=== PATIENT | female | born 1980 | race Caucasian/White ===

== ENCOUNTER 2018-10-15 15:08 | Emergency (ER) | payer OTHER ==
[2018-10-15 15:29] VITALS: RESP 18
[2018-10-15] MEDS ORDERED: SODIUM CHLORIDE 0.9% 1,000 ML IV STA (15:38)
[2018-10-15] MEDS ORDERED: ONDANSETRON 4 MG/2 ML VIAL IVP STA (15:38)
--- NOTE | 2018-10-15 15:42 | ED ---
General Adult HPI - General Chief complaint: Recheck/Abnormal Lab/Rx Stated complaint: Diabetes, not feeling well. Time Seen by Provider: 10/15/18 15:33 Source: patient, RN notes reviewed Mode of arrival: ambulatory Limitations: no limitations - History of Present Illness Initial comments: Patient 38-year-old female presented to the emergency room today with a chief complaint of symptoms of nausea, diarrhea, feeling tired. Patient admits that the symptoms started yesterday. She has also felt short of breath at times starting yesterday as well. Patient denies any other complaints or symptoms currently. Patient denies any recent fever, chills, shortness of breath, chest pain, back pain, abdominal pain, vomiting, numbness or tingling, diarrhea, headaches or visual changes, or any other complaints. - Related Data Home Medications Medication Instructions Recorded Confirmed metFORMIN HCL 1,000 mg PO BID 07/02/16 10/15/18 DULoxetine HCL [Cymbalta] 30 mg PO DAILY 10/15/18 10/15/18 Ergocalciferol (Vitamin D2) 50,000 unit PO Q7D 10/15/18 10/15/18 [Vitamin D2] Lisinopril [Zestril] 2.5 mg PO DAILY 10/15/18 10/15/18 Allergies Allergy/AdvReac Type Severity Reaction Status Date / Time No Known Allergies Allergy Verified 10/15/18 15:47 Review of Systems ROS Statement: Those systems with pertinent positive or pertinent negative responses have been documented in the HPI. ROS Other: All systems not noted in ROS Statement are negative. Past Medical History Past Medical History: Diabetes Mellitus History of Any Multi-Drug Resistant Organisms: None Reported Additional Past Surgical History / Comment(s): d&c Past Anesthesia/Blood Transfusion Reactions: No Reported Reaction Past Psychological History: Depression Smoking Status: Former smoker General Exam - General Exam Comments Initial Comments: General: The patient is awake and alert, in no distress, and does not appear acutely ill. Eye: Pupils are equal, round and reactive to light, extra-ocular movements are intact. No nystagmus. There is normal conjunctiva bilaterally. No signs of icterus. Ears, nose, mouth and throat: There are moist mucous membranes and no oral lesions. Neck: The neck is supple, there is no tenderness or JVD. Cardiovascular: There is a regular rate and rhythm. No murmur, rub or gallop is appreciated. Respiratory: Lungs are clear to auscultation, respirations are non-labored, breath sounds are equal. No wheezes, stridor, rales, or rhonchi. Gastrointestinal: Soft, non-distended, non-tender abdomen without masses or organomegaly noted. There is no rebound or guarding present. No CVA tenderness. Musculoskeletal: Normal ROM, no tenderness. Neurological: A&O x 3. CN II-XII intact, There are no obvious motor or sensory deficits. Coordination appears grossly intact. Speech is normal. Skin: Skin is warm and dry and no rashes or lesions are noted. Psychiatric: Cooperative, appropriate mood & affect, normal judgment. Limitations: no limitations Course Vital Signs 10/15/18 10/15/18 15:26 15:56 Temperature 98.0 F 98.4 F Pulse Rate 106 H 87 Respiratory 18 18 Rate Blood Pressure 143/101 134/84 O2 Sat by Pulse 90 L 94 L Oximetry EKG Findings - EKG Comments: EKG Findings:: EKG performed at 1551: Shows normal sinus rhythm at 80 bpm. ME interval 146. QRS 78. QT/QTC 358/412. No acute ST changes. Medical Decision Making - Medical Decision Making Case discussed in detail with attending physician Dr. Valencia. Patient reexamined shows no signs of distress. She does admit that she's feeling better here in the emergency room. Patient had blood work obtained which showed negative d- dimer. Negative cardiac enzymes. Patient's blood glucose mildly elevated. He is on metformin. Acetone negative. Patient given insulin here in the emergency room. Chest x-ray unremarkable. EKG shows normal sinus rhythm. Patient feeling better and would like to be discharged home. Will be discharged to follow-up family doctor tomorrow. Advised to continue to monitor blood sugar at home return if any symptoms increase or worsen. - Lab Data Result diagrams: 10/15/18 15:42 10/15/18 15:50 Lab Results 10/15/18 10/15/18 10/15/18 Range/Units 15:35 15:35 15:41 WBC (3.8-10.6) k/uL RBC (3.80-5.40) m/uL Hgb (11.4-16.0) gm/dL Hct (34.0-46.0) % MCV (80.0-100.0) fL MCH (25.0-35.0) pg MCHC (31.0-37.0) g/dL RDW (11.5-15.5) % Plt Count (150-450) k/uL Neutrophils % % Lymphocytes % % Monocytes % % Eosinophils % % Basophils % % Neutrophils # (1.3-7.7) k/uL Lymphocytes # (1.0-4.8) k/uL Monocytes # (0-1.0) k/uL Eosinophils # (0-0.7) k/uL Basophils # (0-0.2) k/uL PT (9.0-12.0) sec INR (<1.2) APTT (22.0-30.0) sec D-Dimer (<0.60) mg/L FEU Sodium (137-145) mmol/L Potassium (3.5-5.1) mmol/L Chloride (98-107) mmol/L Carbon Dioxide (22-30) mmol/L Anion Gap mmol/L BUN (7-17) mg/dL Creatinine (0.52-1.04) mg/dL Est GFR (CKD-EPI)AfAm (>60 ml/min/1.73 sqM) Est GFR (CKD-EPI)NonAf (>60 ml/min/1.73 sqM) Glucose (74-99) mg/dL POC Glucose (mg/dL) 273 H (75-99) mg/dL POC Glu [employer] Supply Technician ID [place] Melara Calcium (8.4-10.2) mg/dL Total Bilirubin (0.2-1.3) mg/dL AST (14-36) U/L ALT (9-52) U/L Alkaline Phosphatase (38-126) U/L Total Creatine Kinase (30-135) U/L CK-MB (CK-2) (0.0-2.4) ng/mL CK-MB (CK-2) Rel Index Troponin I (0.000-0.034) ng/mL Total Protein (6.3-8.2) g/dL Albumin (3.5-5.0) g/dL Lipase (23-300) U/L Urine Color Yellow Urine Appearance Cloudy H (Clear) Urine pH 5.0 (5.0-8.0) Ur Specific [place] 1.027 (1.001-1.035) Urine Protein Trace H (Negative) Urine Glucose (UA) 4+ H (Negative) Urine Ketones Trace H (Negative) Urine Blood Trace H (Negative) Urine Nitrite Negative (Negative) Urine Bilirubin Negative (Negative) Urine Urobilinogen <2.0 (<2.0) mg/dL Ur Leukocyte Esterase Large H (Negative) Urine RBC 37 H (0-5) /hpf Ur Squamous Epith Cells 5 H (0-4) /hpf Urine Bacteria Rare H (None) /hpf Urine Mucus Rare H (None) /hpf Urine HCG, Qual Not Detected (Not Detectd) Acetone, Qual (Negative) 10/15/18 10/15/18 10/15/18 Range/Units 15:42 15:50 15:50 WBC 10.1 (3.8-10.6) k/uL RBC 5.31 (3.80-5.40) m/uL Hgb 14.5 (11.4-16.0) gm/dL Hct 43.5 (34.0-46.0) % MCV 81.9 (80.0-100.0) fL MCH 27.4 (25.0-35.0) pg MCHC 33.4 (31.0-37.0) g/dL RDW 14.2 (11.5-15.5) % Plt Count 347 (150-450) k/uL Neutrophils % 68 % Lymphocytes % 23 % Monocytes % 5 % Eosinophils % 2 % Basophils % 0 % Neutrophils # 6.9 (1.3-7.7) k/uL Lymphocytes # 2.3 (1.0-4.8) k/uL Monocytes # 0.5 (0-1.0) k/uL Eosinophils # 0.2 (0-0.7) k/uL Basophils # 0.0 (0-0.2) k/uL PT (9.0-12.0) sec INR (<1.2) APTT (22.0-30.0) sec D-Dimer (<0.60) mg/L FEU Sodium 137 (137-145) mmol/L Potassium 4.3 (3.5-5.1) mmol/L Chloride 101 (98-107) mmol/L Carbon Dioxide 26 (22-30) mmol/L Anion Gap 10 mmol/L BUN 10 (7-17) mg/dL Creatinine 0.54 (0.52-1.04) mg/dL Est GFR (CKD-EPI)AfAm >90 (>60 ml/min/1.73 sqM) Est GFR (CKD-EPI)NonAf >90 (>60 ml/min/1.73 sqM) Glucose 306 H (74-99) mg/dL POC Glucose (mg/dL) (75-99) mg/dL POC Glu Central Supply Technician ID Calcium 10.2 (8.4-10.2) mg/dL Total Bilirubin 0.7 (0.2-1.3) mg/dL AST 63 H (14-36) U/L ALT 48 (9-52) U/L Alkaline Phosphatase 115 (38-126) U/L Total Creatine Kinase 34 (30-135) U/L CK-MB (CK-2) <0.2 (0.0-2.4) ng/mL CK-MB (CK-2) Rel Index Troponin I <0.012 (0.000-0.034) ng/mL Total Protein 8.0 (6.3-8.2) g/dL Albumin 4.0 (3.5-5.0) g/dL Lipase 207 (23-300) U/L Urine Color Urine Appearance (Clear) Urine pH (5.0-8.0) Ur Specific [place] (1.001-1.035) Urine Protein (Negative) Urine Glucose (UA) (Negative) Urine Ketones (Negative) Urine Blood (Negative) Urine Nitrite (Negative) Urine Bilirubin (Negative) Urine Urobilinogen (<2.0) mg/dL Ur Leukocyte Esterase (Negative) Urine RBC (0-5) /hpf Ur Squamous Epith Cells (0-4) /hpf Urine Bacteria (None) /hpf Urine Mucus (None) /hpf Urine HCG, Qual (Not Detectd) Acetone, Qual Negative (Negative) 10/15/18 10/15/18 Range/Units 15:50 17:03 WBC (3.8-10.6) k/uL RBC (3.80-5.40) m/uL Hgb (11.4-16.0) gm/dL Hct (34.0-46.0) % MCV (80.0-100.0) fL MCH (25.0-35.0) pg MCHC (31.0-37.0) g/dL RDW (11.5-15.5) % Plt Count (150-450) k/uL Neutrophils % % Lymphocytes % % Monocytes % % Eosinophils % % Basophils % % Neutrophils # (1.3-7.7) k/uL Lymphocytes # (1.0-4.8) k/uL Monocytes # (0-1.0) k/uL Eosinophils # (0-0.7) k/uL Basophils # (0-0.2) k/uL PT 10.4 (9.0-12.0) sec INR 1.0 (<1.2) APTT 23.3 (22.0-30.0) sec D-Dimer 0.23 (<0.60) mg/L FEU Sodium (137-145) mmol/L Potassium (3.5-5.1) mmol/L Chloride (98-107) mmol/L Carbon Dioxide (22-30) mmol/L Anion Gap mmol/L BUN (7-17) mg/dL Creatinine (0.52-1.04) mg/dL Est GFR (CKD-EPI)AfAm (>60 ml/min/1.73 sqM) Est GFR (CKD-EPI)NonAf (>60 ml/min/1.73 sqM) Glucose (74-99) mg/dL POC Glucose (mg/dL) 238 H (75-99) mg/dL POC Glu Central Supply Technician ID [place] Sally Calcium (8.4-10.2) mg/dL Total Bilirubin (0.2-1.3) mg/dL AST (14-36) U/L ALT (9-52) U/L Alkaline Phosphatase (38-126) U/L Total Creatine Kinase (30-135) U/L CK-MB (CK-2) (0.0-2.4) ng/mL CK-MB (CK-2) Rel Index Troponin I (0.000-0.034) ng/mL Total Protein (6.3-8.2) g/dL Albumin (3.5-5.0) g/dL Lipase (23-300) U/L Urine Color Urine Appearance (Clear) Urine pH (5.0-8.0) Ur Specific [place] (1.001-1.035) Urine Protein (Negative) Urine Glucose (UA) (Negative) Urine Ketones (Negative) Urine Blood (Negative) Urine Nitrite (Negative) Urine Bilirubin (Negative) Urine Urobilinogen (<2.0) mg/dL Ur Leukocyte Esterase (Negative) Urine RBC (0-5) /hpf Ur Squamous Epith Cells (0-4) /hpf Urine Bacteria (None) /hpf Urine Mucus (None) /hpf Urine HCG, Qual (Not Detectd) Acetone, Qual (Negative) Disposition Clinical Impression: Hyperglycemia Disposition: HOME SELF-CARE Condition: Good Instructions: Diabetic Hyperglycemia (ED) Additional Instructions: Please follow family doctor tomorrow as discussed. Please continue to monitor blood glucose at home. Please return here to emergency room symptoms increase or worsen or for any other concerns. Is patient prescribed a controlled substance at d/c from ED?: No Referrals: Caitlin Rdz MD [Primary Care Provider] - 1-2 days Time of Disposition: 17:48
[2018-10-15 15:52] LABS: Basophils % (A) 0 %; Eosinophils # (A) 0.2 k/uL (0-0.7); Eosinophils % (A) 2 %; HCT 43.5 % (34.0-46.0); HGB 14.5 gm/dL (11.4-16.0); Lymphocytes # (A) 2.3 k/uL (1.0-4.8); Lymphocytes % (A) 23 %; MCH 27.4 pg (25.0-35.0); MCHC 33.4 g/dL (31.0-37.0); MCV 81.9 fL (80.0-100.0); Mean Platelet Volume 7.5; Monocytes # (A) 0.5 k/uL (0-1.0); Monocytes % (A) 5 %; Neutrophils # (A) 6.9 k/uL (1.3-7.7); Neutrophils % (A) 68 %; Platelet Count 347 k/uL (150-450); RBC 5.31 m/uL (3.80-5.40); RDW 14.2 % (11.5-15.5); WBC 10.1 k/uL (3.8-10.6)
[2018-10-15 16:04] LABS: ALT 48 U/L (9-52); AST 63 U/L (14-36); Alkaline Phosphatase 115 U/L (38-126); Anion Gap 10 mmol/L; Blood Urea Nitrogen 10 mg/dL (7-17); Calcium 10.2 mg/dL (8.4-10.2); Carbon Dioxide 26 mmol/L (22-30); Chloride 101 mmol/L (98-107); Glucose 306 mg/dL (74-99); Lipase 207 U/L (23-300); Potassium 4.3 mmol/L (3.5-5.1); Sodium 137 mmol/L (137-145); Total Bilirubin 0.7 mg/dL (0.2-1.3)
[2018-10-15 16:04] LABS: Appearance,Urine Cloudy (Clear); Bacteria,Urine Rare /hpf; Bilirubin,Urine Negative (Negative); Blood,Urine Trace (Negative); Color,Urine Yellow; Glucose,Urine (UA) 4+ (Negative); Ketones,Urine Trace (Negative); Leukocyte Esterase,Urine Large (Negative); Mucus,Urine Rare /hpf; Nitrite,Urine Negative (Negative); Protein,Urine Trace (Negative); RBC,Urine 37 /hpf (0-5); Specific Gravity,Urine 1.027 (1.001-1.035); Squamous Epithelial Cell,Urine 5 /hpf (0-4); Urobilinogen,Urine <2.0 mg/dL (<2.0)
[2018-10-15 16:09] LABS: Glucose,Whole Blood 273 mg/dL (75-99)
[2018-10-15 16:13] LABS: D-Dimer 0.23 mg/L FEU (<0.60); Partial Thromboplastin Time 23.3 sec (22.0-30.0); Prothrombin Time 10.4 sec (9.0-12.0)
[2018-10-15 16:14] LABS: Creatine Kinase 34 U/L (30-135)
[2018-10-15 16:27] LABS: Creatine Kinase MB <0.2 ng/mL (0.0-2.4); Troponin I <0.012 ng/mL (0.000-0.034)
--- NOTE | 2018-10-15 16:27 | XR ---
EXAMINATION TYPE: XR chest 2V DATE OF EXAM: 10/15/2018 COMPARISON: NONE HISTORY: Hyperglycemia and cough. TECHNIQUE: Frontal and lateral views of the chest are obtained. FINDINGS: An azygos lobe/fissure is incidentally seen. There is no focal air space opacity, pleural e ffusion, or pneumothorax seen. The cardiac silhouette size is within normal limits. The osseous st ructures are intact. IMPRESSION: No suspicious acute infiltrate.
[2018-10-15 17:17] LABS: Glucose,Whole Blood 238 mg/dL (75-99)
[2018-10-15] MEDS ORDERED: INSULIN ASPART 100 UNIT/ML 1 ML 10 ML VIAL SQ ONE (17:29)
[2018-10-15 18:17] VITALS: BP 136/88; PULSE 72; TEMP 97.6
[2018-10-16 05:05] LABS: Hemoglobin A1C 10.3 % (4.0-6.0)
== END 2018-10-15 18:40 | disposition home or self-care (01) ==
LOC: EC 15:08
DX: E11.65 Type 2 diabetes mellitus with hyperglycemia (principal); F32.9 Major depressive disorder, single episode, unspecified; Z79.84 Long term (current) use of oral hypoglycemic drugs; Z79.899 Other long term (current) drug therapy; Z87.891 Personal history of nicotine dependence
CPT/HCPCS: 36415; 93005; 85379; 80053; 82550; 82553; 82009; 83690; 84484; 85025; 85610; 85730; 81001; 81025; 87086; 83036; 71046; 99284; 96374; 96361; J2405

== ENCOUNTER 2018-10-16 14:30 | Emergency (ER) | payer OTHER ==
[2018-10-16 14:35] VITALS: RESP 18; TEMP 98.3
[2018-10-16] MEDS ORDERED: SODIUM CHLORIDE 0.9% 2,000 ML IV STA (14:39)
[2018-10-16] MEDS ORDERED: ONDANSETRON 4 MG/2 ML VIAL IVP STA (14:39)
--- NOTE | 2018-10-16 15:12 | ED ---
Nausea/Vomiting/Diarrhea HPI - General Chief complaint: Nausea/Vomiting/Diarrhea Stated complaint: vomiting Time Seen by Provider: 10/16/18 14:39 Source: patient, RN notes reviewed Mode of arrival: ambulatory Limitations: no limitations - History of Present Illness Initial comments: 38-year-old female presents emergency Department for recheck of nausea vomiting diarrhea. Patient states she has not felt well over the last 3 days. Patient states she cannot keep down her medications at her blood sugar has been elevated. Patient was seen in emergency room yesterday and had complete workup including labs, urinalysis. She states she felt slightly better and was discharged. Patient states now she continues to vomit. She does have some dysuria and left flank pain. Patient states she is on metformin for her diabetes. Patient denies shaking her blood sugar prior arrival. Patient denies chest pain or current shortness of breath. - Related Data Home Medications Medication Instructions Recorded Confirmed metFORMIN HCL 1,000 mg PO BID 07/02/16 10/16/18 DULoxetine HCL [Cymbalta] 30 mg PO DAILY 10/15/18 10/16/18 Lisinopril [Zestril] 2.5 mg PO DAILY 10/15/18 10/16/18 Previous Rx's Medication Instructions Recorded Ondansetron Odt [Zofran Odt] 4 mg PO Q6HR PRN #14 tab 10/16/18 Sulfamethox-Tmp 800-160Mg [Bactrim 1 each PO Q12HR #14 tab 10/16/18 Ds] Allergies Allergy/AdvReac Type Severity Reaction Status Date / Time No Known Allergies Allergy Verified 10/16/18 14:39 Review of Systems ROS Statement: Those systems with pertinent positive or pertinent negative responses have been documented in the HPI. ROS Other: All systems not noted in ROS Statement are negative. Past Medical History Past Medical History: Diabetes Mellitus History of Any Multi-Drug Resistant Organisms: None Reported Additional Past Surgical History / Comment(s): d&c Past Anesthesia/Blood Transfusion Reactions: No Reported Reaction Past Psychological History: Depression Smoking Status: Former smoker Past Alcohol Use History: None Reported Past Drug Use History: None Reported General Exam Limitations: no limitations General appearance: alert, in no apparent distress Head exam: Present: atraumatic, normocephalic, normal inspection Eye exam: Present: normal appearance, PERRL, EOMI. Absent: scleral icterus, conjunctival injection, periorbital swelling Respiratory exam: Present: normal lung sounds bilaterally. Absent: respiratory distress, wheezes, rales, rhonchi, stridor Cardiovascular Exam: Present: regular rate, normal rhythm, normal heart sounds. Absent: systolic murmur, diastolic murmur, rubs, gallop, clicks GI/Abdominal exam: Present: soft, normal bowel sounds. Absent: distended, tenderness, guarding, rebound, rigid Back exam: Present: CVA tenderness (R). Absent: CVA tenderness (L) Skin exam: Present: warm, dry, intact, normal color. Absent: rash Course Vital Signs 10/16/18 10/16/18 14:32 16:08 Temperature 98.3 F Pulse Rate 78 72 Respiratory 18 18 Rate Blood Pressure 128/90 120/72 O2 Sat by Pulse 98 96 Oximetry Medical Decision Making - Medical Decision Making 38-year-old female presents emergency Department with chief complaint of nausea vomiting diarrhea. Patient was hydrated 2 L of fluid. Patient does have evidence of urinary tract infection Rocephin was given emergency department. Patient we discharged on Bactrim, Zofran. Patient did have mild hyperglycemia at 2:30 though she is hydrated well 2 L of fluid and is not in DKA. - Lab Data Result diagrams: 10/16/18 14:57 10/16/18 14:57 Lab Results 10/16/18 10/16/18 10/16/18 Range/Units 14:57 14:57 14:57 WBC 8.9 (3.8-10.6) k/uL RBC 5.35 (3.80-5.40) m/uL Hgb 14.1 (11.4-16.0) gm/dL Hct 43.6 (34.0-46.0) % MCV 81.5 (80.0-100.0) fL MCH 26.3 (25.0-35.0) pg MCHC 32.2 (31.0-37.0) g/dL RDW 14.1 (11.5-15.5) % Plt Count 370 (150-450) k/uL Neutrophils % 64 % Lymphocytes % 26 % Monocytes % 7 % Eosinophils % 2 % Basophils % 0 % Neutrophils # 5.7 (1.3-7.7) k/uL Lymphocytes # 2.3 (1.0-4.8) k/uL Monocytes # 0.6 (0-1.0) k/uL Eosinophils # 0.2 (0-0.7) k/uL Basophils # 0.0 (0-0.2) k/uL Sodium 138 (137-145) mmol/L Potassium 4.0 (3.5-5.1) mmol/L Chloride 102 (98-107) mmol/L Carbon Dioxide 26 (22-30) mmol/L Anion Gap 10 mmol/L BUN 9 (7-17) mg/dL Creatinine 0.53 (0.52-1.04) mg/dL Est GFR (CKD-EPI)AfAm >90 (>60 ml/min/1.73 sqM) Est GFR (CKD-EPI)NonAf >90 (>60 ml/min/1.73 sqM) Glucose 258 H (74-99) mg/dL POC Glucose (mg/dL) (75-99) mg/dL POC Glu [employer] [place] ID Plasma Lactic Acid Rd (0.7-2.0) mmol/L Calcium 9.4 (8.4-10.2) mg/dL Total Bilirubin 0.7 (0.2-1.3) mg/dL AST 41 H (14-36) U/L ALT 45 (9-52) U/L Alkaline Phosphatase 106 (38-126) U/L Total Protein 7.9 (6.3-8.2) g/dL Albumin 4.1 (3.5-5.0) g/dL Amylase 68 (30-110) U/L Lipase 437 H (23-300) U/L Urine Color Yellow Urine Appearance Cloudy H (Clear) Urine pH 6.0 (5.0-8.0) Ur Specific [place] 1.020 (1.001-1.035) Urine Protein 1+ H (Negative) Urine Glucose (UA) 4+ H (Negative) Urine Ketones Negative (Negative) Urine Blood Negative (Negative) Urine Nitrite Negative (Negative) Urine Bilirubin Negative (Negative) Urine Urobilinogen <2.0 (<2.0) mg/dL Ur Leukocyte Esterase Large H (Negative) Urine RBC 9 H (0-5) /hpf Urine WBC >182 H (0-5) /hpf Ur Squamous Epith Cells 12 H (0-4) /hpf Urine Mucus Occasional H (None) /hpf Acetone, Qual Negative (Negative) 10/16/18 10/16/18 Range/Units 14:57 15:14 WBC (3.8-10.6) k/uL RBC (3.80-5.40) m/uL Hgb (11.4-16.0) gm/dL Hct (34.0-46.0) % MCV (80.0-100.0) fL MCH (25.0-35.0) pg MCHC (31.0-37.0) g/dL RDW (11.5-15.5) % Plt Count (150-450) k/uL Neutrophils % % Lymphocytes % % Monocytes % % Eosinophils % % Basophils % % Neutrophils # (1.3-7.7) k/uL Lymphocytes # (1.0-4.8) k/uL Monocytes # (0-1.0) k/uL Eosinophils # (0-0.7) k/uL Basophils # (0-0.2) k/uL Sodium (137-145) mmol/L Potassium (3.5-5.1) mmol/L Chloride (98-107) mmol/L Carbon Dioxide (22-30) mmol/L Anion Gap mmol/L BUN (7-17) mg/dL Creatinine (0.52-1.04) mg/dL Est GFR (CKD-EPI)AfAm (>60 ml/min/1.73 sqM) Est GFR (CKD-EPI)NonAf (>60 ml/min/1.73 sqM) Glucose (74-99) mg/dL POC Glucose (mg/dL) 230 H (75-99) mg/dL POC Glu [employer] ID DangitSally campbell Plasma Lactic Acid Rd 1.5 (0.7-2.0) mmol/L Calcium (8.4-10.2) mg/dL Total Bilirubin (0.2-1.3) mg/dL AST (14-36) U/L ALT (9-52) U/L Alkaline Phosphatase (38-126) U/L Total Protein (6.3-8.2) g/dL Albumin (3.5-5.0) g/dL Amylase (30-110) U/L Lipase (23-300) U/L Urine Color Urine Appearance (Clear) Urine pH (5.0-8.0) Ur Specific [place] (1.001-1.035) Urine Protein (Negative) Urine Glucose (UA) (Negative) Urine Ketones (Negative) Urine Blood (Negative) Urine Nitrite (Negative) Urine Bilirubin (Negative) Urine Urobilinogen (<2.0) mg/dL Ur Leukocyte Esterase (Negative) Urine RBC (0-5) /hpf Urine WBC (0-5) /hpf Ur Squamous Epith Cells (0-4) /hpf Urine Mucus (None) /hpf Acetone, Qual (Negative) Disposition Clinical Impression: Nausea vomiting and diarrhea, Hyperglycemia, Urinary tract infection Disposition: HOME SELF-CARE Condition: Stable Instructions: Acute Nausea and Vomiting (ED) Additional Instructions: Please return to the Emergency Department if symptoms worsen or any other concerns. Prescriptions: Ondansetron Odt [Zofran Odt] 4 mg PO Q6HR PRN #14 tab PRN Reason: Nausea Sulfamethox-Tmp 800-160Mg [Bactrim Ds] 1 each PO Q12HR #14 tab Is patient prescribed a controlled substance at d/c from ED?: No Referrals: Caitlin Rdz MD [Primary Care Provider] - 1-2 days Time of Disposition: 16:21
[2018-10-16 15:19] LABS: Glucose,Whole Blood 230 mg/dL (75-99)
[2018-10-16 15:26] LABS: Basophils % (A) 0 %; Eosinophils # (A) 0.2 k/uL (0-0.7); Eosinophils % (A) 2 %; HCT 43.6 % (34.0-46.0); HGB 14.1 gm/dL (11.4-16.0); Lymphocytes # (A) 2.3 k/uL (1.0-4.8); Lymphocytes % (A) 26 %; MCH 26.3 pg (25.0-35.0); MCHC 32.2 g/dL (31.0-37.0); MCV 81.5 fL (80.0-100.0); Mean Platelet Volume 6.8; Monocytes # (A) 0.6 k/uL (0-1.0); Monocytes % (A) 7 %; Neutrophils # (A) 5.7 k/uL (1.3-7.7); Neutrophils % (A) 64 %; Platelet Count 370 k/uL (150-450); RBC 5.35 m/uL (3.80-5.40); RDW 14.1 % (11.5-15.5); WBC 8.9 k/uL (3.8-10.6)
[2018-10-16 15:32] LABS: ALT 45 U/L (9-52); AST 41 U/L (14-36); Albumin 4.1 g/dL (3.5-5.0); Alkaline Phosphatase 106 U/L (38-126); Amylase 68 U/L (30-110); Anion Gap 10 mmol/L; Blood Urea Nitrogen 9 mg/dL (7-17); Calcium 9.4 mg/dL (8.4-10.2); Carbon Dioxide 26 mmol/L (22-30); Chloride 102 mmol/L (98-107); Glucose 258 mg/dL (74-99); Lipase 437 U/L (23-300); Sodium 138 mmol/L (137-145); Total Bilirubin 0.7 mg/dL (0.2-1.3); Total Protein 7.9 g/dL (6.3-8.2)
[2018-10-16 15:46] LABS: Appearance,Urine Cloudy (Clear); Bilirubin,Urine Negative (Negative); Blood,Urine Negative (Negative); Color,Urine Yellow; Glucose,Urine (UA) 4+ (Negative); Ketones,Urine Negative (Negative); Leukocyte Esterase,Urine Large (Negative); Mucus,Urine Occasional /hpf; Nitrite,Urine Negative (Negative); Protein,Urine 1+ (Negative); RBC,Urine 9 /hpf (0-5); Squamous Epithelial Cell,Urine 12 /hpf (0-4); Urobilinogen,Urine <2.0 mg/dL (<2.0); WBC,Urine >182 /hpf (0-5)
[2018-10-16 16:11] VITALS: BP 120/72; PULSE 72
[2018-10-16] MEDS ORDERED: METOCLOPRAMIDE 5 MG/ML 2 ML VIAL IVP STA (16:19)
[2018-10-16] MEDS ORDERED: diphenhydrAMINE 50 MG/ML 1 ML VIAL IVP STA (16:19)
[2018-10-17 03:52] LABS: Hemoglobin A1C 10.4 % (4.0-6.0)
== END 2018-10-16 16:44 | disposition home or self-care (01) ==
LOC: EC 14:30
DX: N39.0 Urinary tract infection, site not specified (principal); E11.65 Type 2 diabetes mellitus with hyperglycemia; R11.2 Nausea with vomiting, unspecified; R19.7 Diarrhea, unspecified; F32.9 Major depressive disorder, single episode, unspecified; Z87.891 Personal history of nicotine dependence; Z79.84 Long term (current) use of oral hypoglycemic drugs; Z79.899 Other long term (current) drug therapy
CPT/HCPCS: 36415; 80053; 82150; 82009; 83605; 83690; 85025; 81001; 87040; 87086; 83036; 99284; 96365; 96375 ×3; 96361; J1200; J2765; J2405; J0696

== ENCOUNTER 2018-10-25 15:30 | Emergency (ER) | payer OTHER ==
--- NOTE | 2018-10-25 23:18 | XR ---
EXAMINATION TYPE: KUB DATE OF EXAM: 10/25/2018 COMPARISON: 02/07/2016 HISTORY: 38-year-old female right-sided abdominal pain TECHNIQUE: 2 views upright FINDINGS: No evidence for free intraperitoneal air. No dilated small bowel or air-fluid levels. Mild overall stool burden. No definite suspicious calcifications are identified. IMPRESSION: No evidence for free air or bowel obstruction. No definite suspicious calcifications are appreciated radiographically.
[2018-10-26 04:01] LABS: Appearance,Urine Cloudy (Clear); Bacteria,Urine Rare /hpf; Bilirubin,Urine Negative (Negative); Blood,Urine Negative (Negative); Budding Yeast,Urine Few /hpf; Color,Urine Yellow; Glucose,Urine (UA) 4+ (Negative); Ketones,Urine 1+ (Negative); Leukocyte Esterase,Urine Moderate (Negative); Mucus,Urine Rare /hpf; Nitrite,Urine Negative (Negative); PH, Urine 5.5 (5.0-8.0); Protein,Urine 1+ (Negative); RBC,Urine 10 /hpf (0-5); Specific Gravity,Urine 1.031 (1.001-1.035); Squamous Epithelial Cell,Urine 11 /hpf (0-4); Urobilinogen,Urine <2.0 mg/dL (<2.0); WBC,Urine 25 /hpf (0-5)
[2018-10-26 05:20] LABS: Basophils % (A) 0 %; Eosinophils # (A) 0.2 k/uL (0-0.7); Eosinophils % (A) 2 %; HCT 43.9 % (34.0-46.0); HGB 14.2 gm/dL (11.4-16.0); Lymphocytes # (A) 2.5 k/uL (1.0-4.8); Lymphocytes % (A) 22 %; MCH 26.5 pg (25.0-35.0); MCHC 32.4 g/dL (31.0-37.0); MCV 81.7 fL (80.0-100.0); Mean Platelet Volume 7.2; Monocytes # (A) 0.6 k/uL (0-1.0); Monocytes % (A) 6 %; Neutrophils # (A) 7.8 k/uL (1.3-7.7); Neutrophils % (A) 69 %; Platelet Count 363 k/uL (150-450); RBC 5.37 m/uL (3.80-5.40); WBC 11.2 k/uL (3.8-10.6)
[2018-10-26 12:53] LABS: ALT 43 U/L (9-52); AST 42 U/L (14-36); Albumin 4.2 g/dL (3.5-5.0); Alkaline Phosphatase 125 U/L (38-126); Amylase 54 U/L (30-110); Anion Gap 10 mmol/L; Blood Urea Nitrogen 8 mg/dL (7-17); Calcium 9.5 mg/dL (8.4-10.2); Carbon Dioxide 24 mmol/L (22-30); Chloride 104 mmol/L (98-107); Glucose 257 mg/dL (74-99); Lipase 187 U/L (23-300); Sodium 138 mmol/L (137-145); Total Protein 8.1 g/dL (6.3-8.2)
== END 2018-10-25 18:45 | disposition home or self-care (01) ==
LOC: EC 15:30
DX: N39.0 Urinary tract infection, site not specified (principal); R19.7 Diarrhea, unspecified; N90.89 Other specified noninflammatory disorders of vulva and perineum; Z87.442 Personal history of urinary calculi; Z86.19 Personal history of other infectious and parasitic diseases
CPT/HCPCS: 36415; 74018; 80053; 81001; 82150; 83690; 85025; 87040; 87086; 96361; 96374; 96375; 99284

== ENCOUNTER 2018-12-05 19:34 | Emergency (ER) | payer OTHER ==
[2018-12-05 20:10] VITALS: TEMP 98.4
[2018-12-05] MEDS ORDERED: SODIUM CHLORIDE 0.9% 1,000 ML IV ONE (20:18)
--- NOTE | 2018-12-05 20:18 | ED ---
General Adult HPI - General Chief complaint: Recheck/Abnormal Lab/Rx Stated complaint: High Sugar Time Seen by Provider: 12/05/18 20:17 Source: patient Mode of arrival: ambulatory Limitations: no limitations - History of Present Illness Initial comments: 38-year-old female presenting today for chief complaint of elevated blood glucose. Patient has history of [id number] diabetes currently on metformin. Patient states she was at her primary care provider where she elevated blood glucose as well as ketones in her urine. Patient was non-sym ptomatically at this time she states she has been a little tired brother that no complaints. Patient states she's been compliant with her medication. Upon arrival patient appears well. Remaining review of system negative,patient denies any recent fever, chills, shortness of breath, chest pain, back pain, abdominal pain, nausea or vomiting, numbness or tingling, dysuria or hematuria, constipation or diarrhea, headaches or visual changes, or any other complaints - Related Data Home Medications Medication Instructions Recorded Confirmed metFORMIN HCL 1,000 mg PO BID 07/02/16 12/05/18 Lisinopril [Zestril] 2.5 mg PO DAILY 10/15/18 12/05/18 Allergies Allergy/AdvReac Type Severity Reaction Status Date / Time No Known Allergies Allergy Verified 12/05/18 20:35 Review of Systems ROS Statement: Those systems with pertinent positive or pertinent negative responses have been documented in the HPI. ROS Other: All systems not noted in ROS Statement are negative. Past Medical History Past Medical History: Diabetes Mellitus History of Any Multi-Drug Resistant Organisms: None Reported Additional Past Surgical History / Comment(s): d&c Past Anesthesia/Blood Transfusion Reactions: No Reported Reaction Past Psychological History: Depression Smoking Status: Former smoker Past Alcohol Use History: None Reported Past Drug Use History: None Reported General Exam - General Exam Comments Initial Comments: General: The patient is awake and alert, in no distress, and does not appear acutely ill. Eye: Pupils are equal, round and reactive to light, extra-ocular movements are intact. No nystagmus. There is normal conjunctiva bilaterally. No signs of icterus. Ears, nose, mouth and throat: There are moist mucous membranes and no oral lesions. Neck: The neck is supple, there is no tenderness or JVD. Cardiovascular: There is a regular rate and rhythm. No murmur, rub or gallop is appreciated. Respiratory: Lungs are clear to auscultation, respirations are non-labored, breath sounds are equal. No wheezes, stridor, rales, or rhonchi. Gastrointestinal: Soft, non-distended, non-tender abdomen without masses or organomegaly noted. There is no rebound or guarding present. Bowel sounds are unremarkable. Musculoskeletal: Normal ROM, no tenderness. Strength 5/5. Sensation intact. Pulses equal bilaterally 2+. Neurological: A&O x 3. CN II-XII intact, There are no obvious motor or sensory deficits. Coordination appears grossly intact. Speech is normal. Skin: Skin is warm and dry and no rashes or lesions are noted. Psychiatric: Cooperative, appropriate mood & affect, normal judgment. Limitations: no limitations Course Vital Signs 12/05/18 12/05/18 20:06 22:31 Temperature 98.4 F Pulse Rate 93 81 Respiratory 20 16 Rate Blood Pressure 136/92 135/80 O2 Sat by Pulse 100 98 Oximetry Medical Decision Making - Medical Decision Making patient has no complaints.Blood glucose elevated. patient given IV fluids. Patient given subq insulin. Acetone negative. Anion gap within normal limits at 11.ketones in urine. Patient discharge with instruction to f/u with PCP for improvement of diabetes management. I discussed the importance of management as well as importance of diet changes next chest. Patient provided information on diabetes diet. At this time feel patient is stable for discharge as patient has no local medical signs indicative of DKA. Patient has no complaints. Patient discharged to [facility]. Will ask discussed the case with her brother Dr. Harvey. - Lab Data Result diagrams: 12/05/18 21:14 12/05/18 21:14 Lab Results 12/05/18 12/05/18 12/05/18 Range/Units 21:14 21:14 21:34 WBC 10.5 (3.8-10.6) k/uL RBC 5.79 H (3.80-5.40) m/uL Hgb 15.7 (11.4-16.0) gm/dL Hct 47.9 H (34.0-46.0) % MCV 82.9 (80.0-100.0) fL MCH 27.1 (25.0-35.0) pg MCHC 32.7 (31.0-37.0) g/dL RDW 14.5 (11.5-15.5) % Plt Count 314 (150-450) k/uL Neutrophils % 64 % Lymphocytes % 27 % Monocytes % 5 % Eosinophils % 2 % Basophils % 0 % Neutrophils # 6.7 (1.3-7.7) k/uL Lymphocytes # 2.9 (1.0-4.8) k/uL Monocytes # 0.5 (0-1.0) k/uL Eosinophils # 0.2 (0-0.7) k/uL Basophils # 0.0 (0-0.2) k/uL Sodium 137 (137-145) mmol/L Potassium 4.8 (3.5-5.1) mmol/L Chloride 101 (98-107) mmol/L Carbon Dioxide 25 (22-30) mmol/L Anion Gap 11 mmol/L BUN 11 (7-17) mg/dL Creatinine 0.44 L (0.52-1.04) mg/dL Est GFR (CKD-EPI)AfAm >90 (>60 ml/min/1.73 sqM) Est GFR (CKD-EPI)NonAf >90 (>60 ml/min/1.73 sqM) Glucose 269 H (74-99) mg/dL POC Glucose (mg/dL) (75-99) mg/dL POC Glu Mangle Roller ID Calcium 9.9 (8.4-10.2) mg/dL Total Bilirubin 1.1 (0.2-1.3) mg/dL AST 24 (14-36) U/L ALT 28 (9-52) U/L Alkaline Phosphatase 114 (38-126) U/L Total Protein 8.4 H (6.3-8.2) g/dL Albumin 4.5 (3.5-5.0) g/dL Urine Color Yellow Urine Appearance Cloudy H (Clear) Urine pH 5.0 (5.0-8.0) Ur Specific [place] 1.036 H (1.001-1.035) Urine Protein Trace H (Negative) Urine Glucose (UA) 4+ H (Negative) Urine Ketones 1+ H (Negative) Urine Blood Negative (Negative) Urine Nitrite Negative (Negative) Urine Bilirubin Negative (Negative) Urine Urobilinogen <2.0 (<2.0) mg/dL Ur Leukocyte Esterase Moderate H (Negative) Urine RBC 28 H (0-5) /hpf Urine WBC 6 H (0-5) /hpf Ur Squamous Epith Cells 4 (0-4) /hpf Urine Bacteria Rare H (None) /hpf Urine Mucus Rare H (None) /hpf Acetone, Qual Negative (Negative) 12/05/18 Range/Units 22:26 WBC (3.8-10.6) k/uL RBC (3.80-5.40) m/uL Hgb (11.4-16.0) gm/dL Hct (34.0-46.0) % MCV (80.0-100.0) fL MCH (25.0-35.0) pg MCHC (31.0-37.0) g/dL RDW (11.5-15.5) % Plt Count (150-450) k/uL Neutrophils % % Lymphocytes % % Monocytes % % Eosinophils % % Basophils % % Neutrophils # (1.3-7.7) k/uL Lymphocytes # (1.0-4.8) k/uL Monocytes # (0-1.0) k/uL Eosinophils # (0-0.7) k/uL Basophils # (0-0.2) k/uL Sodium (137-145) mmol/L Potassium (3.5-5.1) mmol/L Chloride (98-107) mmol/L Carbon Dioxide (22-30) mmol/L Anion Gap mmol/L BUN (7-17) mg/dL Creatinine (0.52-1.04) mg/dL Est GFR (CKD-EPI)AfAm (>60 ml/min/1.73 sqM) Est GFR (CKD-EPI)NonAf (>60 ml/min/1.73 sqM) Glucose (74-99) mg/dL POC Glucose (mg/dL) 221 H (75-99) mg/dL POC Glu Mangle Roller ID Brynn Carr Calcium (8.4-10.2) mg/dL Total Bilirubin (0.2-1.3) mg/dL AST (14-36) U/L ALT (9-52) U/L Alkaline Phosphatase (38-126) U/L Total Protein (6.3-8.2) g/dL Albumin (3.5-5.0) g/dL Urine Color Urine Appearance (Clear) Urine pH (5.0-8.0) Ur Specific [place] (1.001-1.035) Urine Protein (Negative) Urine Glucose (UA) (Negative) Urine Ketones (Negative) Urine Blood (Negative) Urine Nitrite (Negative) Urine Bilirubin (Negative) Urine Urobilinogen (<2.0) mg/dL Ur Leukocyte Esterase (Negative) Urine RBC (0-5) /hpf Urine WBC (0-5) /hpf Ur Squamous Epith Cells (0-4) /hpf Urine Bacteria (None) /hpf Urine Mucus (None) /hpf Acetone, Qual (Negative) Disposition Clinical Impression: Elevated random blood glucose level, Urine ketones Disposition: HOME SELF-CARE Condition: Good Instructions (If sedation given, give patient instructions): Diabetes and Nutrition (ED), Diabetes and Exercise (ED) Additional Instructions: Please use medication as discussed. Please follow-up with family doctor in the next 2 day, for review of diabetes medications, please change diet as discussed and increase exercise. Please return to emergency room if the symptoms increase or worsen or for any other concerns. Is patient prescribed a controlled substance at d/c from ED?: No Referrals: Caitlin Rdz MD [Primary Care Provider] - 1-2 days Time of Disposition: 21:48
[2018-12-05 21:29] LABS: Basophils % (A) 0 %; Eosinophils # (A) 0.2 k/uL (0-0.7); Eosinophils % (A) 2 %; HCT 47.9 % (34.0-46.0); HGB 15.7 gm/dL (11.4-16.0); Lymphocytes # (A) 2.9 k/uL (1.0-4.8); Lymphocytes % (A) 27 %; MCH 27.1 pg (25.0-35.0); MCHC 32.7 g/dL (31.0-37.0); MCV 82.9 fL (80.0-100.0); Mean Platelet Volume 7.7; Monocytes # (A) 0.5 k/uL (0-1.0); Monocytes % (A) 5 %; Neutrophils # (A) 6.7 k/uL (1.3-7.7); Neutrophils % (A) 64 %; Platelet Count 314 k/uL (150-450); RBC 5.79 m/uL (3.80-5.40); RDW 14.5 % (11.5-15.5); WBC 10.5 k/uL (3.8-10.6)
[2018-12-05 21:41] LABS: ALT 28 U/L (9-52); AST 24 U/L (14-36); Albumin 4.5 g/dL (3.5-5.0); Alkaline Phosphatase 114 U/L (38-126); Anion Gap 11 mmol/L; Blood Urea Nitrogen 11 mg/dL (7-17); Calcium 9.9 mg/dL (8.4-10.2); Carbon Dioxide 25 mmol/L (22-30); Chloride 101 mmol/L (98-107); Glucose 269 mg/dL (74-99); Potassium 4.8 mmol/L (3.5-5.1); Sodium 137 mmol/L (137-145); Total Bilirubin 1.1 mg/dL (0.2-1.3); Total Protein 8.4 g/dL (6.3-8.2)
[2018-12-05] MEDS ORDERED: INSULIN REGULAR 100 UNIT/ML VIAL SQ ONE (21:45)
[2018-12-05 21:55] LABS: Appearance,Urine Cloudy (Clear); Bacteria,Urine Rare /hpf; Bilirubin,Urine Negative (Negative); Blood,Urine Negative (Negative); Color,Urine Yellow; Glucose,Urine (UA) 4+ (Negative); Ketones,Urine 1+ (Negative); Leukocyte Esterase,Urine Moderate (Negative); Mucus,Urine Rare /hpf; Nitrite,Urine Negative (Negative); Protein,Urine Trace (Negative); RBC,Urine 28 /hpf (0-5); Specific Gravity,Urine 1.036 (1.001-1.035); Squamous Epithelial Cell,Urine 4 /hpf (0-4); Urobilinogen,Urine <2.0 mg/dL (<2.0); WBC,Urine 6 /hpf (0-5)
[2018-12-05 22:28] LABS: Glucose,Whole Blood 221 mg/dL (75-99)
[2018-12-05 22:33] VITALS: BP 135/80; PULSE 81; RESP 16
== END 2018-12-05 22:31 | disposition home or self-care (01) ==
LOC: EC 19:34
DX: E11.9 Type 2 diabetes mellitus without complications (principal); R82.4 Acetonuria; Z87.891 Personal history of nicotine dependence; Z79.84 Long term (current) use of oral hypoglycemic drugs; Z79.899 Other long term (current) drug therapy
CPT/HCPCS: 36415; 80053; 81001; 82009; 85025; 96360; 99284

== ENCOUNTER → 2019-06-09 | Outpatient (CLI) | payer OTHER ==
--- NOTE | 2019-06-09 13:39 | CT ---
EXAMINATION TYPE: CT brain wo con DATE OF EXAM: 06/09/2019 COMPARISON: None. HISTORY: Headaches with visual disturbance. CT DLP: 1017.9 mGycm. Automated Exposure Control for Dose Reduction was Utilized. TECHNIQUE: CT scan of the head is performed without contrast. FINDINGS: There is no acute intracranial hemorrhage, mass effect, or midline shift identified. The ventricles and sulci are within normal limits in size. Santos-white matter differentiation is maintai chicho. Suprasellar cistern is preserved. The globes are intact and the visualized sinuses are clear. IMPRESSION: Unremarkable study.
== END | disposition home or self-care (01) ==
LOC: RADCTMAIN 12:34
PROVIDERS: ATTEND Family Medicine
DX: H53.9 Unspecified visual disturbance (principal); R51 Headache
CPT/HCPCS: 70450

== ENCOUNTER 2020-10-29 14:23 | Emergency (ER) | payer OTHER ==
[2020-10-29] MEDS ORDERED: SODIUM CHLORIDE 0.9% 1,000 ML IV ONE (14:42)
[2020-10-29] MEDS ORDERED: SODIUM CHLORIDE 0.9% 1,000 ML IV SCH (14:45)
--- NOTE | 2020-10-29 14:54 | ED ---
Abdominal Pain HPI - General Chief Complaint: Abdominal Pain Stated Complaint: Abd Pain Time Seen by Provider: 10/29/20 14:28 Source: patient Mode of arrival: ambulatory Limitations: no limitations - History of Present Illness Initial Comments: 40-year-old female with history of DMII presenting today for chief complaint abdominal pain. Patient states that she has a fullness in her lower abdomen that radiates towards her low to mid back. Patient states she was recently admitted at [facility] for colitis as well as diverticulitis. Patient states that she had some shortness of breath she states that changed. She denies any chest pain. Pt admits to nausea, no vomiting. Pt denies black or bloody stools. Patient denies fevers. Denies urinary symptoms. Pt states she does have history of kidney stones. Patient appears well nontoxic on arrival. - Related Data Home Medications Medication Instructions Recorded Confirmed metFORMIN HCL 1,000 mg PO BID 07/02/16 10/29/20 lisinopriL [Zestril] 2.5 mg PO DAILY 10/15/18 10/29/20 Atorvastatin [Lipitor] 20 mg PO DAILY 10/29/20 10/29/20 Cefuroxime Axetil [Ceftin] 500 mg PO BID 10/29/20 10/29/20 Glimepiride [Amaryl] 2 mg PO DAILY 10/29/20 10/29/20 Meloxicam [Mobic] 7.5 mg PO DAILY PRN 10/29/20 10/29/20 Sennosides [Senna] 8.6 mg PO BID PRN 10/29/20 10/29/20 metroNIDAZOLE [Flagyl] 500 mg PO TID 10/29/20 10/29/20 polyethylene glycoL 3350 [Miralax] 17 gm PO DAILY 10/29/20 10/29/20 Allergies Allergy/AdvReac Type Severity Reaction Status Date / Time No Known Allergies Allergy Verified 10/29/20 16:37 Review of Systems ROS Statement: Those systems with pertinent positive or pertinent negative responses have been documented in the HPI. ROS Other: All systems not noted in ROS Statement are negative. Past Medical History Past Medical History: Diabetes Mellitus History of Any Multi-Drug Resistant Organisms: None Reported Additional Past Surgical History / Comment(s): d&c Past Anesthesia/Blood Transfusion Reactions: No Reported Reaction Past Psychological History: Depression Smoking Status: Current every day smoker Past Alcohol Use History: None Reported Past Drug Use History: None Reported General Exam - General Exam Comments Initial Comments: General: The patient is awake and alert, in no distress Eye: Pupils are equal, round and reactive to light, extra-ocular movements are intact. No nystagmus. There is normal conjunctiva bilaterally. No signs of icterus. Ears, nose, mouth and throat: There are moist mucous membranes and no oral lesions. Neck: The neck is supple, there is no tenderness or JVD. Cardiovascular: There is a regular rate and rhythm. No murmur, rub or gallop is appreciated. Respiratory: Lungs are clear to auscultation, respirations are non-labored, breath sounds are equal. No wheezes, stridor, rales, or rhonchi. Gastrointestinal: [Soft, non-distended, diffuse lower abdominal tenderness to palpation of the, abdomen abdomen without masses or organomegaly noted. There is no rebound or guarding present. Musculoskeletal: Normal ROM, no tenderness. Strength 5/5. Sensation intact. Radial and DP pulses equal bilaterally 2+. Neurological: A&O x 3. CN II-XII intact, There are no obvious motor or sensory deficits. Coordination appears grossly intact. Speech is normal. Skin: Skin is warm and dry and no rashes or lesions are noted. Psychiatric: Cooperative, appropriate mood & affect, normal judgment. Limitations: no limitations Course Vital Signs 10/29/20 10/29/20 10/29/20 14:25 15:51 17:08 Temperature 98.5 F 98.3 F Pulse Rate 85 72 80 Respiratory 16 18 18 Rate Blood Pressure 152/90 128/86 141/93 O2 Sat by Pulse 98 98 97 Oximetry Medical Decision Making - Medical Decision Making 40yo covid + female presneting with lwoer abdominal pain .recent diverticulitis admission. CT mild to MINIMAL diverticulitis. No dyspnea or chest pain. Pt UA contaminated, culture pending. pt on bactrim/flagyll. pt will be discharged with GI f/u and PCP f/u. return for worsening symptoms. pt does not appear toxic nor in distress. Given reports from [facility] i feel pt improving. VS stable. Attending Dr. Harvey is agreebable to this care plan and discharge. - Lab Data Result diagrams: 10/29/20 14:53 10/29/20 14:53 Lab Results 10/29/20 10/29/20 10/29/20 Range/Units 14:53 14:53 14:53 WBC 8.7 (3.8-10.6) k/uL RBC 5.21 (3.80-5.40) m/uL Hgb 14.4 (11.4-16.0) gm/dL Hct 43.0 (34.0-46.0) % MCV 82.6 (80.0-100.0) fL MCH 27.6 (25.0-35.0) pg MCHC 33.4 (31.0-37.0) g/dL RDW 14.0 (11.5-15.5) % Plt Count 288 (150-450) k/uL MPV 7.7 Neutrophils % 68 % Lymphocytes % 21 % Monocytes % 6 % Eosinophils % 4 % Basophils % 1 % Neutrophils # 5.9 (1.3-7.7) k/uL Lymphocytes # 1.8 (1.0-4.8) k/uL Monocytes # 0.5 (0-1.0) k/uL Eosinophils # 0.3 (0-0.7) k/uL Basophils # 0.1 (0-0.2) k/uL Sodium 140 (137-145) mmol/L Potassium 3.7 (3.5-5.1) mmol/L Chloride 106 (98-107) mmol/L Carbon Dioxide 26 (22-30) mmol/L Anion Gap 8 mmol/L BUN 7 (7-17) mg/dL Creatinine 0.60 (0.52-1.04) mg/dL Est GFR (CKD-EPI)AfAm >90 (>60 ml/min/1.73 sqM) Est GFR (CKD-EPI)NonAf >90 (>60 ml/min/1.73 sqM) Glucose 106 H (74-99) mg/dL Plasma Lactic Acid Rd (0.7-2.0) mmol/L Calcium 8.7 (8.4-10.2) mg/dL Total Bilirubin 0.6 (0.2-1.3) mg/dL AST 36 (14-36) U/L ALT 29 (4-34) U/L Alkaline Phosphatase 88 (38-126) U/L Total Protein 7.4 (6.3-8.2) g/dL Albumin 3.5 (3.5-5.0) g/dL Amylase 65 (30-110) U/L Lipase 237 (23-300) U/L Urine Color Yellow Urine Appearance Cloudy H (Clear) Urine pH 7.5 (5.0-8.0) Ur Specific [place] 1.020 (1.001-1.035) Urine Protein Negative (Negative) Urine Glucose (UA) Negative (Negative) Urine Ketones Negative (Negative) Urine Blood Negative (Negative) Urine Nitrite Negative (Negative) Urine Bilirubin Negative (Negative) Urine Urobilinogen <2.0 (<2.0) mg/dL Ur Leukocyte Esterase Moderate H (Negative) Urine RBC 4 (0-5) /hpf Urine WBC 13 H (0-5) /hpf Ur Squamous Epith Cells 7 H (0-4) /hpf Urine Mucus Occasional H (None) /hpf 10/29/20 Range/Units 14:53 WBC (3.8-10.6) k/uL RBC (3.80-5.40) m/uL Hgb (11.4-16.0) gm/dL Hct (34.0-46.0) % MCV (80.0-100.0) fL MCH (25.0-35.0) pg MCHC (31.0-37.0) g/dL RDW (11.5-15.5) % Plt Count (150-450) k/uL MPV Neutrophils % % Lymphocytes % % Monocytes % % Eosinophils % % Basophils % % Neutrophils # (1.3-7.7) k/uL Lymphocytes # (1.0-4.8) k/uL Monocytes # (0-1.0) k/uL Eosinophils # (0-0.7) k/uL Basophils # (0-0.2) k/uL Sodium (137-145) mmol/L Potassium (3.5-5.1) mmol/L Chloride (98-107) mmol/L Carbon Dioxide (22-30) mmol/L Anion Gap mmol/L BUN (7-17) mg/dL Creatinine (0.52-1.04) mg/dL Est GFR (CKD-EPI)AfAm (>60 ml/min/1.73 sqM) Est GFR (CKD-EPI)NonAf (>60 ml/min/1.73 sqM) Glucose (74-99) mg/dL Plasma Lactic Acid Rd 1.8 (0.7-2.0) mmol/L Calcium (8.4-10.2) mg/dL Total Bilirubin (0.2-1.3) mg/dL AST (14-36) U/L ALT (4-34) U/L Alkaline Phosphatase (38-126) U/L Total Protein (6.3-8.2) g/dL Albumin (3.5-5.0) g/dL Amylase (30-110) U/L Lipase (23-300) U/L Urine Color Urine Appearance (Clear) Urine pH (5.0-8.0) Ur Specific [place] (1.001-1.035) Urine Protein (Negative) Urine Glucose (UA) (Negative) Urine Ketones (Negative) Urine Blood (Negative) Urine Nitrite (Negative) Urine Bilirubin (Negative) Urine Urobilinogen (<2.0) mg/dL Ur Leukocyte Esterase (Negative) Urine RBC (0-5) /hpf Urine WBC (0-5) /hpf Ur Squamous Epith Cells (0-4) /hpf Urine Mucus (None) /hpf Disposition Clinical Impression: Diverticulitis, History of COVID-19, Abdominal pain, Urine WBC increased Disposition: HOME SELF-CARE Condition: Good Instructions (If sedation given, give patient instructions): Diverticulitis (ED), Abdominal Pain (ED) Additional Instructions: Please use medication as discussed. Please follow-up with family doctor in the next 2 days, as well as GI specialist in the next 2-3 days. Please return to emergency room if the symptoms increase or worsen or for any other concerns. Is patient prescribed a controlled substance at d/c from ED?: No Referrals: Caitlin Rdz MD [Primary Care Provider] - 1-2 days Dakota Palacios MD [STAFF PHYSICIAN] - 1-2 days Time of Disposition: 16:53
[2020-10-29 15:04] LABS: Basophils # (A) 0.1 k/uL (0-0.2); Basophils % (A) 1 %; Eosinophils # (A) 0.3 k/uL (0-0.7); Eosinophils % (A) 4 %; HGB 14.4 gm/dL (11.4-16.0); Lymphocytes # (A) 1.8 k/uL (1.0-4.8); Lymphocytes % (A) 21 %; MCH 27.6 pg (25.0-35.0); MCHC 33.4 g/dL (31.0-37.0); MCV 82.6 fL (80.0-100.0); Mean Platelet Volume 7.7; Monocytes # (A) 0.5 k/uL (0-1.0); Monocytes % (A) 6 %; Neutrophils # (A) 5.9 k/uL (1.3-7.7); Neutrophils % (A) 68 %; Platelet Count 288 k/uL (150-450); RBC 5.21 m/uL (3.80-5.40); WBC 8.7 k/uL (3.8-10.6)
[2020-10-29 15:09] LABS: Appearance,Urine Cloudy (Clear); Bilirubin,Urine Negative (Negative); Blood,Urine Negative (Negative); Color,Urine Yellow; Glucose,Urine (UA) Negative (Negative); Ketones,Urine Negative (Negative); Leukocyte Esterase,Urine Moderate (Negative); Mucus,Urine Occasional /hpf; Nitrite,Urine Negative (Negative); PH, Urine 7.5 (5.0-8.0); Protein,Urine Negative (Negative); RBC,Urine 4 /hpf (0-5); Squamous Epithelial Cell,Urine 7 /hpf (0-4); Urobilinogen,Urine <2.0 mg/dL (<2.0); WBC,Urine 13 /hpf (0-5)
[2020-10-29] MEDS ORDERED: cefTRIAXone IN SWFI 1,000 MG/10 ML SYRINGE IVP STA (15:18)
[2020-10-29 15:35] LABS: ALT 29 U/L (4-34); AST 36 U/L (14-36); African American GFR (CKD) >90 (>60 ml/min/1.73 sqM); Albumin 3.5 g/dL (3.5-5.0); Alkaline Phosphatase 88 U/L (38-126); Amylase 65 U/L (30-110); Anion Gap 8 mmol/L; Blood Urea Nitrogen 7 mg/dL (7-17); Calcium 8.7 mg/dL (8.4-10.2); Carbon Dioxide 26 mmol/L (22-30); Chloride 106 mmol/L (98-107); Glucose 106 mg/dL (74-99); Lipase 237 U/L (23-300); Non-African American GFR(CKD) >90 (>60 ml/min/1.73 sqM); Potassium 3.7 mmol/L (3.5-5.1); Sodium 140 mmol/L (137-145); Total Bilirubin 0.6 mg/dL (0.2-1.3); Total Protein 7.4 g/dL (6.3-8.2)
[2020-10-29 15:57] VITALS: RESP 18
--- NOTE | 2020-10-29 16:45 | CT ---
EXAMINATION TYPE: CT abdomen pelvis w con DATE OF EXAM: 10/29/2020 COMPARISON: None: HISTORY: Abdominal and back pain. Recent diagnosis of diverticulitis. CT DLP: 1895.1 mGycm Automated exposure control for dose reduction was used. CONTRAST: Performed with IV Contrast, patient injected with 100 mL of Isovue 300. Images obtained from the diaphragm to the floor the pelvis with IV contrast. Lung bases are clear of consolidation. There is no pleural effusion. There is no pericardial effusion . Heart size is normal. There is some fatty infiltration of the liver. The spleen is intact. There is no pancreatic mass. The stomach is intact. Gallbladder appears normal. There is no adrenal mass. Kidneys show satisfactory contrast opacification. There is no hydronephrosi s. There is 2 cm cortical cyst upper pole left kidney. The delayed images show normal renal excretion . There is no retroperitoneal adenopathy. Ureters are not dilated. Bladder distends smoothly. There i s no inguinal hernia. There is no free fluid in the pelvis. There is no mesenteric edema. There is no ascites or free air. There is no bowel obstruction. Appendix is medial and appears normal. There is some mild fat stranding around the proximal sigmoid colon. There are sigmoid multiple divert icula. The lumbar vertebra have normal alignment. Posterior elements are intact. There is no compression fra cture. Bony pelvis is intact. Hip joints are intact. IMPRESSION: There is some inflammatory changes around the proximal sigmoid colon consistent with minimal divertic ulitis. No abscess. Normal appendix. Mild fatty infiltration of the liver.
[2020-10-29] MEDS ORDERED: ACET/COD 300 MG/30 MG STARTER PACK 6 TAB BTL PO STA (16:54)
[2020-10-29 17:10] VITALS: BP 141/93; PULSE 80; TEMP 98.3
== END 2020-10-29 17:09 | disposition home or self-care (01) ==
LOC: EC 14:23
DX: K57.92 Diverticulitis of intestine, part unspecified, without perforation or abscess without bleeding (principal); R82.998 Other abnormal findings in urine; E11.9 Type 2 diabetes mellitus without complications; F17.200 Nicotine dependence, unspecified, uncomplicated; Z79.899 Other long term (current) drug therapy; Z79.84 Long term (current) use of oral hypoglycemic drugs; Z87.442 Personal history of urinary calculi; Z86.16 Personal history of COVID-19
CPT/HCPCS: 36415; 80053; 82150; 83605; 83690; 85025; 81001; 87086; 74177; 99284; 96374; 96361 ×2; J0696; Q9967

== ENCOUNTER 2020-12-03 16:14 | Inpatient (IN) | payer MEDICAID, OTHER ==
--- NOTE | 2020-12-03 16:57 | ED ---
Psych HPI - General Source: patient, EMS Mode of arrival: EMS <Prosper Garcia - Last Filed: 12/03/20 19:08> <Oz Gamez - Last Filed: 12/03/20 19:49> - General Chief Complaint: Psychiatric Symptoms Stated Complaint: EPS eval Time Seen by Provider: 12/03/20 16:23 - History of Present Illness Initial Comments: 40-year-old female presents to emergency department for psychiatric evaluation. Patient states she has been recently overwhelmed because she left her boyfriend for another man but now he is refusing to see her. Patient reports she is also homeless. States this morning around 9:00 she took about 6-8 tablets of Milton 5 -325. She did vomit about 3 hours after ingesting the medication. Patient reports her brother decided to call the ambulance on her over 6 hours later. She denies any headaches, vomiting, nausea, abdominal pain chest pain or shortness of breath. She denies taking any other medications to overdose. Denies any homicidal thoughts or ideations. (Prosper Garcia) - Related Data Home Medications Medication Instructions Recorded Confirmed metFORMIN HCL 1,000 mg PO BID 07/02/16 10/29/20 lisinopriL [Zestril] 2.5 mg PO DAILY 10/15/18 10/29/20 Atorvastatin [Lipitor] 20 mg PO DAILY 10/29/20 10/29/20 Cefuroxime Axetil [Ceftin] 500 mg PO BID 10/29/20 10/29/20 Glimepiride [Amaryl] 2 mg PO DAILY 10/29/20 10/29/20 Meloxicam [Mobic] 7.5 mg PO DAILY PRN 10/29/20 10/29/20 Sennosides [Senna] 8.6 mg PO BID PRN 10/29/20 10/29/20 metroNIDAZOLE [Flagyl] 500 mg PO TID 10/29/20 10/29/20 polyethylene glycoL 3350 [Miralax] 17 gm PO DAILY 10/29/20 10/29/20 Allergies Allergy/AdvReac Type Severity Reaction Status Date / Time No Known Allergies Allergy Verified 12/03/20 16:15 Review of Systems ROS Other: All systems not noted in ROS Statement are negative. <Prosper Garcia - Last Filed: 12/03/20 19:08> ROS Other: All systems not noted in ROS Statement are negative. <Oz Gamez - Last Filed: 12/03/20 19:49> ROS Statement: Those systems with pertinent positive or pertinent negative responses have been documented in the HPI. Past Medical History Past Medical History: Diabetes Mellitus History of Any Multi-Drug Resistant Organisms: None Reported Additional Past Surgical History / Comment(s): d&c Past Anesthesia/Blood Transfusion Reactions: No Reported Reaction Past Psychological History: Depression Smoking Status: Current every day smoker Past Alcohol Use History: Occasional Past Drug Use History: Marijuana <Prosper Garcia - Last Filed: 12/03/20 19:08> General Exam Limitations: no limitations General appearance: alert, in no apparent distress, obese Head exam: Present: atraumatic, normocephalic, normal inspection Eye exam: Present: normal appearance, PERRL, EOMI Pupils: Present: normal accommodation ENT exam: Present: normal exam, normal oropharynx, mucous membranes moist Neck exam: Present: normal inspection, full ROM. Absent: tenderness, meningismus Respiratory exam: Present: normal lung sounds bilaterally. Absent: respiratory distress Cardiovascular Exam: Present: regular rate, normal rhythm, normal heart sounds GI/Abdominal exam: Present: soft. Absent: distended, tenderness, guarding, rebound Extremities exam: Present: normal inspection, full ROM, normal capillary refill. Absent: tenderness, pedal edema, joint swelling Back exam: Present: normal inspection, full ROM. Absent: tenderness Neurological exam: Present: alert, oriented X3, normal gait Psychiatric exam: Present: normal affect, normal mood Skin exam: Present: warm, dry, intact, normal color <Prosper Garcia - Last Filed: 12/03/20 19:08> Course Vital Signs 12/03/20 12/03/20 16:15 18:00 Temperature 98 F Pulse Rate 96 Respiratory 18 18 Rate Blood Pressure 137/94 O2 Sat by Pulse 97 Oximetry Medical Decision Making - Lab Data Result diagrams: 12/03/20 17:08 12/03/20 17:08 <Prosper Garcia - Last Filed: 12/03/20 19:08> - Lab Data Result diagrams: 12/03/20 17:08 12/03/20 17:08 <Oz Gamez - Last Filed: 12/03/20 19:49> - Medical Decision Making 40-year-old female presents to emergency department for psychiatric evaluation. Patient did report taking 6-8 tablets of Milton 5325 mg. This was at least 6 hours prior to arrival and she did have a vomiting episode after taking the medication. CBC showing leukocytosis of 12.7, likely reactive. CMP reveals mild transaminitis of ALT. Patient is not . Urine drug screen positive for marijuana. Negative salicylates and acetaminophen. Negative serum alcohol. EPS to evaluate patient. At this time, patient care signed off to (Prosper Garcia) Patient was endorsed to me by ED GREG Garcia with the EPS evaluation pending. EPS nurse has now completed her evaluation, and she states that the patient will be admitted to the psychiatric unit, and she will be checking herself in. (Oz Gamez) - Lab Data Lab Results 12/03/20 12/03/20 12/03/20 Range/Units 17:08 17:08 17:08 WBC 12.7 H (3.8-10.6) k/uL RBC 5.27 (3.80-5.40) m/uL Hgb 14.8 (11.4-16.0) gm/dL Hct 44.9 (34.0-46.0) % MCV 85.1 (80.0-100.0) fL MCH 28.2 (25.0-35.0) pg MCHC 33.1 (31.0-37.0) g/dL RDW 14.0 (11.5-15.5) % Plt Count 383 (150-450) k/uL MPV 7.6 Neutrophils % 74 % Lymphocytes % 18 % Monocytes % 5 % Eosinophils % 2 % Basophils % 0 % Neutrophils # 9.4 H (1.3-7.7) k/uL Lymphocytes # 2.3 (1.0-4.8) k/uL Monocytes # 0.6 (0-1.0) k/uL Eosinophils # 0.3 (0-0.7) k/uL Basophils # 0.1 (0-0.2) k/uL Sodium (137-145) mmol/L Potassium (3.5-5.1) mmol/L Chloride (98-107) mmol/L Carbon Dioxide (22-30) mmol/L Anion Gap mmol/L BUN (7-17) mg/dL Creatinine (0.52-1.04) mg/dL Est GFR (CKD-EPI)AfAm (>60 ml/min/1.73 sqM) Est GFR (CKD-EPI)NonAf (>60 ml/min/1.73 sqM) Glucose (74-99) mg/dL Calcium (8.4-10.2) mg/dL Total Bilirubin (0.2-1.3) mg/dL AST (14-36) U/L ALT (4-34) U/L Alkaline Phosphatase (38-126) U/L Total Protein (6.3-8.2) g/dL Albumin (3.5-5.0) g/dL Urine HCG, Qual Not Detected (Not Detectd) Salicylates mg/dL Urine Opiates Screen Not Detected (NotDetected) Ur Oxycodone Screen Not Detected (NotDetected) Urine Methadone Screen Not Detected (NotDetected) Ur Propoxyphene Screen Not Detected (NotDetected) Acetaminophen ug/mL Ur Barbiturates Screen Not Detected (NotDetected) U Tricyclic Antidepress Not Detected (NotDetected) Ur Phencyclidine Scrn Not Detected (NotDetected) Ur Amphetamines Screen Not Detected (NotDetected) U Methamphetamines Scrn Not Detected (NotDetected) U Benzodiazepines Scrn Not Detected (NotDetected) Urine Cocaine Screen Not Detected (NotDetected) U Marijuana (THC) Screen Detected H (NotDetected) Serum Alcohol mg/dL 12/03/20 Range/Units 17:08 WBC (3.8-10.6) k/uL RBC (3.80-5.40) m/uL Hgb (11.4-16.0) gm/dL Hct (34.0-46.0) % MCV (80.0-100.0) fL MCH (25.0-35.0) pg MCHC (31.0-37.0) g/dL RDW (11.5-15.5) % Plt Count (150-450) k/uL MPV Neutrophils % % Lymphocytes % % Monocytes % % Eosinophils % % Basophils % % Neutrophils # (1.3-7.7) k/uL Lymphocytes # (1.0-4.8) k/uL Monocytes # (0-1.0) k/uL Eosinophils # (0-0.7) k/uL Basophils # (0-0.2) k/uL Sodium 136 L (137-145) mmol/L Potassium 4.4 (3.5-5.1) mmol/L Chloride 101 (98-107) mmol/L Carbon Dioxide 25 (22-30) mmol/L Anion Gap 10 mmol/L BUN 11 (7-17) mg/dL Creatinine 0.65 (0.52-1.04) mg/dL Est GFR (CKD-EPI)AfAm >90 (>60 ml/min/1.73 sqM) Est GFR (CKD-EPI)NonAf >90 (>60 ml/min/1.73 sqM) Glucose 195 H (74-99) mg/dL Calcium 9.8 (8.4-10.2) mg/dL Total Bilirubin 0.5 (0.2-1.3) mg/dL AST 31 (14-36) U/L ALT 36 H (4-34) U/L Alkaline Phosphatase 105 (38-126) U/L Total Protein 8.7 H (6.3-8.2) g/dL Albumin 4.3 (3.5-5.0) g/dL Urine HCG, Qual (Not Detectd) Salicylates <1.0 mg/dL Urine Opiates Screen (NotDetected) Ur Oxycodone Screen (NotDetected) Urine Methadone Screen (NotDetected) Ur Propoxyphene Screen (NotDetected) Acetaminophen <10.0 ug/mL Ur Barbiturates Screen (NotDetected) U Tricyclic Antidepress (NotDetected) Ur Phencyclidine Scrn (NotDetected) Ur Amphetamines Screen (NotDetected) U Methamphetamines Scrn (NotDetected) U Benzodiazepines Scrn (NotDetected) Urine Cocaine Screen (NotDetected) U Marijuana (THC) Screen (NotDetected) Serum Alcohol <10 mg/dL Disposition <Prosper Garcia - Last Filed: 12/03/20 19:08> Is patient prescribed a controlled substance at d/c from ED?: No Time of Disposition: 19:47 <Oz Gamez - Last Filed: 12/03/20 19:49> Clinical Impression: Medication overdose, Suicidal risk Disposition: ADMITTED IP TO THIS HOSP Condition: Stable Referrals: Caitlin Rdz MD [Primary Care Provider] - 1-2 days
[2020-12-03 17:26] LABS: Basophils # (A) 0.1 k/uL (0-0.2); Basophils % (A) 0 %; Eosinophils # (A) 0.3 k/uL (0-0.7); Eosinophils % (A) 2 %; HCT 44.9 % (34.0-46.0); HGB 14.8 gm/dL (11.4-16.0); Lymphocytes # (A) 2.3 k/uL (1.0-4.8); Lymphocytes % (A) 18 %; MCH 28.2 pg (25.0-35.0); MCHC 33.1 g/dL (31.0-37.0); MCV 85.1 fL (80.0-100.0); Mean Platelet Volume 7.6; Monocytes # (A) 0.6 k/uL (0-1.0); Monocytes % (A) 5 %; Neutrophils # (A) 9.4 k/uL (1.3-7.7); Neutrophils % (A) 74 %; Platelet Count 383 k/uL (150-450); RBC 5.27 m/uL (3.80-5.40); WBC 12.7 k/uL (3.8-10.6)
[2020-12-03 17:37] LABS: Amphetamine Screen,Urine Not Detected (NotDetected); Barbiturate Screen,Urine Not Detected (NotDetected); Benzodiazepines Screen,Urine Not Detected (NotDetected); Cocaine Screen,Urine Not Detected (NotDetected); Methadone Screen, Urine Not Detected (NotDetected); Opiate Screen,Urine Not Detected (NotDetected); Oxycodone Screen, Urine Not Detected (NotDetected); Phencyclidine Screen,Urine Not Detected (NotDetected); Tricyclic Antidepressant,Urine Not Detected (NotDetected); Urn Cannabinoid Scrn Detected (NotDetected)
[2020-12-03 17:38] LABS: ALT 36 U/L (4-34); AST 31 U/L (14-36); Acetaminophen <10.0 ug/mL; African American GFR (CKD) >90 (>60 ml/min/1.73 sqM); Albumin 4.3 g/dL (3.5-5.0); Alcohol <10 mg/dL; Alkaline Phosphatase 105 U/L (38-126); Anion Gap 10 mmol/L; Blood Urea Nitrogen 11 mg/dL (7-17); Calcium 9.8 mg/dL (8.4-10.2); Carbon Dioxide 25 mmol/L (22-30); Chloride 101 mmol/L (98-107); Glucose 195 mg/dL (74-99); Non-African American GFR(CKD) >90 (>60 ml/min/1.73 sqM); Potassium 4.4 mmol/L (3.5-5.1); Salicylate <1.0 mg/dL; Sodium 136 mmol/L (137-145); Total Bilirubin 0.5 mg/dL (0.2-1.3); Total Protein 8.7 g/dL (6.3-8.2)
[2020-12-03] MEDS ORDERED: MAGNESIUM HYDROXIDE 2,400 MG/10 ML CUP PO PRN (20:20)
[2020-12-03] MEDS ORDERED: LORazepam 1 MG TAB PO PRN (20:20)
[2020-12-03] MEDS ORDERED: MAG HYDROX/AL HYDROX/SIMETH 30 ML CUP PO PRN (20:20)
[2020-12-03] MEDS ORDERED: ACETAMINOPHEN TAB 325 MG TAB PO PRN (20:20)
[2020-12-03] MEDS ORDERED: SENNOSIDES 8.6 MG TAB PO PRN (20:24)
[2020-12-03] MEDS ORDERED: LORazepam 2 MG/ML INJ IM PRN (20:25)
[2020-12-03] MEDS ORDERED: traZODone HCL 100 MG TAB PO PRN (20:28)
[2020-12-03] MEDS ORDERED: HALOPERIDOL LACTATE 5 MG/ML 1 ML VIAL IM PRN (20:28)
[2020-12-03] MEDS: metroNIDAZOLE 500 MG TAB PO SCH (22:11)
[2020-12-03] MEDS: haloperidoL 5 MG TAB PO SCH (22:11)
[2020-12-03] MEDS: metFORMIN 500 MG TAB PO SCH (22:11)
--- NOTE | 2020-12-03 23:37 | P.CONS ---
History of Present Illness - Reason for Consult Consult date: 12/03/20 - History of Present Illness The patient was seen with the [facility] staff. I was never alone with the patient. The patient si a 40 yo F with a PMH of Type 2 DM, tobacco abuse, and depression who presented to the ED with complaints of depression and suicidal ideation. The patient was admitted to the [facility] where she was seen and evaluated. She reports that she is having some difficulties with her relationships currently as she had previosuly left a 15 year long relationship for someone else who she recently broke up with. She notes that her ex-boyfriend no longer wants her to come back so she is essentially homeless. She reports trying to commit suicide by taking 5-6 Tylenol #3 at around 9 am this morning. She subsequently vomiting 3 hours later. The patients brother activated EMS at around 3 pm. The patient denied experiencing any symptoms from the medications. She denied active complaints at the time of interview. Denied chest pain, SOB, fever, chills, cough, nausea, vomiting, diarrhea, or abdominal pain. The patient reports smoking 1/2 PPD and smoking marijauana regularly. Review of Systems Pertinent positives and negatives as discussed in HPI, a complete review of systems was performed and all other systems are negative. Past Medical History Past Medical History: Diabetes Mellitus History of Any Multi-Drug Resistant Organisms: None Reported Additional Past Surgical History / Comment(s): d&c Past Anesthesia/Blood Transfusion Reactions: No Reported Reaction Past Psychological History: Depression Smoking Status: Current every day smoker Past Alcohol Use History: Occasional Past Drug Use History: Marijuana Medications and Allergies Home Medications Medication Instructions Recorded Confirmed Type metFORMIN HCL 1,000 mg PO BID 07/02/16 12/03/20 History lisinopriL [Zestril] 2.5 mg PO DAILY 10/15/18 12/03/20 History Glimepiride [Amaryl] 2 mg PO DAILY 10/29/20 12/03/20 History Allergies Allergy/AdvReac Type Severity Reaction Status Date / Time No Known Allergies Allergy Verified 12/03/20 22:52 Physical Exam Vitals: Vital Signs Temp Pulse Resp BP Pulse Ox 12/03/20 18:00 18 12/03/20 16:15 98 F 96 18 137/94 97 Intake and Output 12/03/20 12/03/20 12/04/20 14:59 22:59 06:59 Other: Weight 104.326 kg General: non toxic, no distress, appears older than stated age, morbidly obese Derm: no unusual rashes/lesions no unusual ecchymoses, warm, dry Head: atraumatic, normocephalic, symmetric Eyes: EOMI, no lid lag, anicteric sclera, pupils equal round reactive to light ENT: Nose and ears atraumatic, no thrush, no pharyngeal erythema Neck: No thyromegaly, no cervical lymphadenopathy, trachea midline, supple Mouth: no lip lesion, mucus membranes moist Cardiovascular: S1S2 reg, no murmur, positive posterior tibial pulse bilateral, no edema, capillary refill less than 2 seconds Lungs: CTA bilateral, no rhonchi, no rales , no accessory muscle use Abdominal: soft, nontender to palpation, no guarding, no appreciable organomegaly, normal bowel sounds Ext: no gross muscle atrophy, muscle strength 5 out of 5 in all 4 extremities grossly, no contractures, Neuro: CN II-XI grossly intact, light touch intact all 4 extremities, finger to nose within normal limits, Psych: Alert, oriented, appropriate affect Results CBC & Chem 7: 12/03/20 17:08 12/03/20 17:08 Labs: Abnormal Lab Results - Last 24 Hours (Table) 12/03/20 12/03/20 12/03/20 Range/Units 17:08 17:08 17:08 WBC 12.7 H (3.8-10.6) k/uL Neutrophils # 9.4 H (1.3-7.7) k/uL Sodium 136 L (137-145) mmol/L Glucose 195 H (74-99) mg/dL ALT 36 H (4-34) U/L Total Protein 8.7 H (6.3-8.2) g/dL U Marijuana (THC) Screen Detected H (NotDetected) Assessment and Plan Plan: Type 2 DM -C/w home medications: Metformin, Glimepiride -Check A1C Leukocytosis -Likely reactive, no signs of active infection at this time HTN -C/w home lisinopril Tobacco and Marijuana abuse -Advised on the importance of cessation Depression with suicidal ideation -As per psychiatry
[2020-12-04 07:59] LABS: Glucose,Whole Blood 130 mg/dL (75-99)
[2020-12-04] MEDS: GLIMEPIRIDE 2 MG TAB PO SCH (09:12)
[2020-12-04] MEDS: haloperidoL 5 MG TAB PO SCH ×3 (09:13→22:11)
[2020-12-04] MEDS: metFORMIN 500 MG TAB PO SCH ×2 (09:13→22:11)
[2020-12-04] MEDS: ATORVASTATIN 20 MG TAB PO SCH (09:13)
[2020-12-04] MEDS: metroNIDAZOLE 500 MG TAB PO SCH ×3 (09:13→22:11)
[2020-12-04] MEDS: polyethylene glycoL 3350 17 GM POWD.PACK PO SCH (09:14)
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
[2020-12-04] MEDS: SERTRALINE 50 MG TAB PO SCH (10:58)
[2020-12-04 12:28] LABS: Glucose,Whole Blood 115 mg/dL (75-99)
[2020-12-04 14:32] LABS: Hemoglobin A1C 7.3 % (4.0-6.0)
--- NOTE | 2020-12-04 17:25 | CONS ---
CONSULTATION DATE OF SERVICE: 12/04/2020 REASON FOR CONSULTATION: Diabetes and multiple medical issues, requested by Psychiatry. HISTORY OF PRESENT ILLNESS: This 40-year-old woman with a past history of diabetes type 2, history of diverticulosis, history of depression, being followed by Dr. Caitlin Rdz in the outpatient setting, was admitted for psychiatric evaluation. The blood sugars have been monitored closely. The patient had involuntary suicide attempt by overdose, opiates and pain medications. No chest pain. No palpitations. No fever, rigors or chills. No shortness of breath. No hematochezia or melena at this time. PAST MEDICAL HISTORY: Diabetes type 2, diverticulitis, Covid and migraine, history of D&C. MEDICATIONS: Medications prior to admission include metformin, lisinopril, Amaryl. Doses are reviewed. ALLERGIES: None. FAMILY HISTORY: No history of heart disease or strokes in the family. SOCIAL HISTORY: Occasional alcohol, THC, history of smoking. REVIEW OF SYSTEMS: ENT: No diminished vision. No diminished hearing. CARDIOVASCULAR: No angina or palpitations. RESPIRATIONS: No cough or hemoptysis. GI no nausea or vomiting. no dysuria. NERVOUS SYSTEM: No numbness, weakness. ALLERGY/IMMUNOLOGY: No asthma or hayfever. MUSCULOSKELETAL as mentioned earlier. HEMATOLOGY/ONCOLOGY: No history of anemia. ENDOCRINE: Diabetes. CONSTITUTIONAL: As mentioned earlier. DERMATOLOGY: Negative. RHEUMATOLOGY: Negative. PSYCHIATRY as mentioned. PHYSICAL EXAMINATION: The patient is alert and oriented times three. Pulse is 84. Blood pressure 130/70, respirations 16, temperature 97.7, pulse ox 97% on room air. HEENT: Conjunctivae normal. NECK: No JVD. CARDIOVASCULAR: S1, S2 muffled. RESPIRATION: Breath sounds diminished in the bases. No rhonchi. No crackles. ABDOMEN: Soft, nontender. No mass palpable. LEGS no edema. No swelling. NERVOUS SYSTEM: Higher functions as mentioned earlier. Moves all 4 limbs. No focal motor or sensory deficits. LYMPHATICS: No lymph nodes palpable in the neck, axillae or groin. SKIN: No ulcer, no rash or bleeding. JOINTS: No active deforming arthropathy. LABS: WBC 6.2, hemoglobin 14.2, sodium 136, and total protein is 8.7, triglycerides 155, LDL is 106. ASSESSMENT: 1. Diabetes mellitus type 2. 2. Depression. 3. Hyponatremia. 4. Increased WBC. 5. Hypertriglyceridemia. 6. Hyperlipidemia. 7. Obesity with body mass index 41.2. 8. History of diverticulitis. 9. History of Covid 19. 10.History of migraine. 11.History of continued ongoing nicotine dependence. 12.FULL CODE. RECOMMENDATIONS AND DISCUSSION: In this 40-year-old woman who presented with multiple medical issues, at this time, I recommend to continue current medications, and symptomatic treatment. Otherwise continue the oral hypoglycemic agent. Accu-Cheks before meals and at bedtime. I would also recommend UA with micro. I will be happy to review increasing abnormalities in the UA. Thank you for letting us participate in the care of this patient. The patient may be asked to follow up closely with Dr. Caitlin Rdz after discharge for evaluation, management and continued followup of other medical issues. Discussed with the patient. A copy of dictation being forwarded to Dr. Caitlin Rdz who is Kendell who is the primary physician. ERICK / FARIDEH: [id number] /
[2020-12-04 18:03] LABS: Glucose,Whole Blood 135 mg/dL (75-99)
[2020-12-04 20:11] LABS: Glucose,Whole Blood 122 mg/dL (75-99)
[2020-12-05 06:44] VITALS: RESP 16
[2020-12-05 07:53] LABS: Glucose,Whole Blood 157 mg/dL (75-99)
[2020-12-05] MEDS: ATORVASTATIN 20 MG TAB PO SCH (09:13)
[2020-12-05] MEDS: GLIMEPIRIDE 2 MG TAB PO SCH (09:14)
[2020-12-05] MEDS: metFORMIN 500 MG TAB PO SCH ×2 (09:14→20:34)
[2020-12-05] MEDS: haloperidoL 5 MG TAB PO SCH (09:14)
[2020-12-05] MEDS: polyethylene glycoL 3350 17 GM POWD.PACK PO SCH (09:15)
[2020-12-05] MEDS: metroNIDAZOLE 500 MG TAB PO SCH (09:15)
[2020-12-05] MEDS: SERTRALINE 50 MG TAB PO SCH (09:15)
--- NOTE | 2020-12-05 11:58 | P.PN ---
Progress Note - Text Progress Note Date: 12/05/20 Interval History: Patient was seen wandering the hallways and was directable and agreeable to speak with justowriter operator in the office. The patient reports that she is currently admitted because of an intentional overdose after an emotionally charged conversation with her boyfriend Julio. She states that Julio did not want to be with her so she decided to overdose with the intention of making him see how much she cares for him. She expresses regret for actions. She is currently denying any suicidal or homicidal ideation, intention, and/or plan. She is denying any auditory or visual hallucinations. She is angry paranoia or other delusions. She has been adherent with medications but is reporting nausea and vomiting as a side effect. The patient reports that she is not used to taking this many pills. The patient reports that she has been nonadherent with her prescribed medications at home as well. Mental Status Exam: General Appearance: Patient appears to be stated age is alert, directable, and cooperative. Obese body habitus. Behavior: Patient is calmly seated without any agitated behavior. Psychomotor slowing is evident. Speech: Patient's speech is fluent and nonpressured. Monotone. Nonspontaneous. Mood/Affect: Mood is improving mildly, affect is congruent and blunted. Suicidality/Homicidality: Patient denies having any suicidal or homicidal ideation intent or plan. Perceptions: Patient denies any visual hallucinations and denies any auditory hallucinations Though content/process: There is no evidence of any delusional thought content and thought process is linear and goal-directed. Memory and concentration: AOX3, grossly intact for the purposes of this session Judgment and insight: Improving mildly Assessment Major depressive disorder, recurrent, severe, without psychotic features Plan: -Patient continues to meet criteria for inpatient psychiatric admission for symptom stabilization and safety. Patient has signed adult voluntary form and medication consent and was placed in patient's chart. -Medications: Discontinue Haldol 5 mg by mouth 3 times a day. Patient does not display any psychotic behavior at this time. We will continue Zoloft 50 mg by mouth daily for depression/anxiety. We will titrate this medication based on patient response and tolerance. -When necessary Ativan and Haldol for agitation/aggression. -SW on board for discharge planning. Encouraged the patient to participate in milieu.
[2020-12-05 13:12] LABS: Glucose,Whole Blood 126 mg/dL (75-99)
[2020-12-05 17:58] LABS: Glucose,Whole Blood 111 mg/dL (75-99)
[2020-12-05 18:11] LABS: Appearance,Urine Cloudy (Clear); Bilirubin,Urine Negative (Negative); Blood,Urine Negative (Negative); Color,Urine Yellow; Glucose,Urine (UA) Negative (Negative); Ketones,Urine Trace (Negative); Leukocyte Esterase,Urine Small (Negative); Mucus,Urine Few /hpf; Nitrite,Urine Negative (Negative); PH, Urine 6.5 (5.0-8.0); Protein,Urine Trace (Negative); RBC,Urine 1 /hpf (0-5); Specific Gravity,Urine 1.022 (1.001-1.035); Squamous Epithelial Cell,Urine 25 /hpf (0-4); Urobilinogen,Urine <2.0 mg/dL (<2.0); WBC,Urine 4 /hpf (0-5)
[2020-12-05 20:13] LABS: Glucose,Whole Blood 120 mg/dL (75-99)
[2020-12-06 04:22] LABS: Urine Alcohol Negative (Negative); Urine Barbiturate Negative (Negative); Urine Cocaine Negative (Negative); Urine Methadone Negative (Negative); Urine Opiates Negative (Negative); Urine Phencyclidine Negative (Negative)
[2020-12-06 07:13] VITALS: TEMP 98.1
[2020-12-06 07:44] LABS: Glucose,Whole Blood 125 mg/dL (75-99)
[2020-12-06] MEDS: GLIMEPIRIDE 2 MG TAB PO SCH (09:13)
[2020-12-06] MEDS: metFORMIN 500 MG TAB PO SCH ×2 (09:13→21:10)
[2020-12-06] MEDS: SERTRALINE 50 MG TAB PO SCH (09:13)
--- NOTE | 2020-12-06 11:08 | P.PN ---
Progress Note - Text Progress Note Date: 12/06/20 Interval History: Patient was seen wandering the hallways and was directable and agreeable to speak with writer editor in the office. The patient reports that she is feeling better today. She states that she has been participating in groups and milieu activities which is helps her mood. The patient expresses understanding that she cannot let her happiness be dictated by her relationships with others. She is not reporting any suicidal or homicidal ideation, intention, and/or plan. She is not reporting any auditory or visual hallucinations. She denies any paranoia or other delusions. She has been adherent to her medications not reporting any significant side effects at this time. Mental Status Exam: General Appearance: Patient appears to be stated age is alert, directable, and cooperative. Obese body habitus. Behavior: Patient is calmly seated without any agitated behavior. Psychomotor activity appears normal today. Speech: Patient's speech is fluent and nonpressured. Monotone. Her spontaneous today. Mood/Affect: Mood is improving mildly, affect is congruent and constricted Suicidality/Homicidality: Patient denies having any suicidal or homicidal ideation intent or plan. Perceptions: Patient denies any visual hallucinations and denies any auditory beebe llucinations Though content/process: There is no evidence of any delusional thought content and thought process is linear and goal-directed. Memory and concentration: AOX3, grossly intact for the purposes of this session Judgment and insight: Improving mildly Assessment Major depressive disorder, recurrent, severe, without psychotic features Plan: -Patient continues to meet criteria for inpatient psychiatric admission for symptom stabilization and safety. Patient has signed adult voluntary form and medication consent and was placed in patient's chart. Anticipate discharge for tomorrow. -Medications: Increase Zoloft to 100 mg by mouth daily for depression/anxiety. We will titrate this medication based on patient response and tolerance. Continue trazodone 100 mg by mouth at bedtime when necessary for insomnia. -When necessary Ativan and Haldol for agitation/aggression. -SW on board for discharge planning. Encouraged the patient to participate in milieu.
[2020-12-06 12:56] LABS: Glucose,Whole Blood 94 mg/dL (75-99)
[2020-12-06 17:49] LABS: Glucose,Whole Blood 102 mg/dL (75-99)
[2020-12-06 20:25] LABS: Glucose,Whole Blood 104 mg/dL (75-99)
[2020-12-07 07:52] LABS: Glucose,Whole Blood 123 mg/dL (75-99)
[2020-12-07] MEDS: metFORMIN 500 MG TAB PO SCH (08:40)
[2020-12-07] MEDS: GLIMEPIRIDE 2 MG TAB PO SCH (08:40)
[2020-12-07 08:43] VITALS: BP 113/81
[2020-12-07] MEDS ORDERED: SERTRALINE 100 MG TAB PO SCH (09:00)
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
[2020-12-07 10:03] VITALS: PULSE 94
== END 2020-12-07 11:45 | disposition home or self-care (01) | DRG 885 ==
LOC: EC 16:14 → 3MHU 20:18
PROVIDERS: ADMIT Psychiatry & Neurology Psychiatry; ATTEND Psychiatry & Neurology Psychiatry
DX: F33.2 Major depressive disorder, recurrent severe without psychotic features (principal); E87.1 Hypo-osmolality and hyponatremia; Z68.41 Body mass index [BMI] 40.0-44.9, adult; F41.9 Anxiety disorder, unspecified; G47.00 Insomnia, unspecified; E78.1 Pure hyperglyceridemia; E78.5 Hyperlipidemia, unspecified; F17.210 Nicotine dependence, cigarettes, uncomplicated; F22 Delusional disorders; Z20.822 Contact with and (suspected) exposure to COVID-19; Z86.16 Personal history of COVID-19; T40.602A Poisoning by unspecified narcotics, intentional self-harm, initial encounter; Z59.0 Homelessness; Z56.0 Unemployment, unspecified; D72.829 Elevated white blood cell count, unspecified; E11.9 Type 2 diabetes mellitus without complications; E66.9 Obesity, unspecified; Z87.19 Personal history of other diseases of the digestive system; Z79.1 Long term (current) use of non-steroidal anti-inflammatories (NSAID); Z79.84 Long term (current) use of oral hypoglycemic drugs; Z79.899 Other long term (current) drug therapy; Z81.8 Family history of other mental and behavioral disorders; G43.909 Migraine, unspecified, not intractable, without status migrainosus
CPT/HCPCS: 36415; 80053; 80061; 80143; 80179; 80306; 80320; 81001; 81025; 82075; 83036; 84443; 85025; 87635; 93005; 99285

== ENCOUNTER → 2022-01-11 | Outpatient (CLI) | payer OTHER ==
[2022-01-11 22:37] LABS: Basophils # (A) 0.04 X 10*3/uL (0.00-0.10); Basophils % (A) 0.4 %; Eosinophils # (A) 0.28 X 10*3/uL (0.04-0.35); Eosinophils % (A) 2.5 %; HCT 40.3 % (37.2-46.3); HGB 12.5 g/dL (12.0-15.0); Immature Grans, Automated 0.4 %; Lymphocytes # (A) 2.74 X 10*3/uL (0.90-5.00); MCH 25.5 pg (27.0-32.0); MCV 82.2 fL (80.0-97.0); Mean Platelet Volume 10.1 fL (9.5-12.2); Monocytes # (A) 0.92 X 10*3/uL (0.20-1.00); Monocytes % (A) 8.1 %; NRBC Per 100 WBC 0 /100 WBCS (0.0-0.0); Neutrophils # (A) 7.37 X 10*3/uL (1.80-7.70); Neutrophils % (A) 64.6 %; Platelet Count 388 X 10*3/uL (140-440); RDW 14.9 % (11.5-14.5)
[2022-01-12 00:32] LABS: Anion Gap 12.5 mmol/L (10.00-18.00); Carbon Dioxide 24.5 mmol/L (20.0-27.5); Potassium 4.3 mmol/L (3.5-5.5)
== END | disposition home or self-care (01) ==
LOC: LABPAT 16:12
PROVIDERS: ATTEND Orthopaedic Surgery
DX: Z01.812 Encounter for preprocedural laboratory examination (principal); M23.92 Unspecified internal derangement of left knee; R35.0 Frequency of micturition
CPT/HCPCS: 36415; 80051; 85025

== ENCOUNTER 2022-01-23 11:32 | Day surgery (SDC) | payer OTHER ==
[2022-01-19 12:36] VITALS: BMI 44.9
--- NOTE | 2022-01-22 10:35 | HP ---
HISTORY AND PHYSICAL CHIEF COMPLAINT: Left knee pain. 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 She notes medial pain along with swelling and giving out. She notes it does lock intermittently. She has tried medications and in addition to an injection, without much relief. PAST MEDICAL HISTORY: Significant for type 2 diabetes, depression, bipolar disorder, arthritis and anxiety disorder. PAST SURGICAL HISTORY: Negative. CURRENT MEDICATIONS: Depakote, glimepiride, metformin, Motrin, Sodus and sertraline. ALLERGIES: SHE DENIES DRUG ALLERGIES. FAMILY HISTORY: Significant for cancer and diabetes. SOCIAL HISTORY: Negative for current tobacco or alcohol use. REVIEW OF SYSTEMS: Sixteen-point review of systems otherwise reviewed and is noncontributory. PHYSICAL EXAMINATION: On examination, the patient is approximately 5 feet tall, 230 pounds of endomorphic habitus. HEENT exam is nonfocal. Neck is supple. She has painless passive motion of her left hip. Straight-leg raise is negative. Active motion of left knee: Minus 15 to 75 degrees of flexion. She has a moderate effusion. She is tender about the medial greater than lateral joint line. Collaterals are stable. Mirna is negative. Yimi's elicits medial and lateral pain. She does have an antalgic gait pattern. Her distal neurovascular exam appears intact in the left lower extremity. MRI report left knee shows evidence of medial and lateral meniscal tears. IMPRESSION: Left knee internal derangement with symptomatic medial and lateral meniscal tears. RECOMMENDATIONS: I talked to the patient at length regarding her condition along with treatment options. At this point she is continuing to have pain and mechanical symptoms despite conservative measures. After thorough discussion, she opts to proceed with surgery. We will plan to proceed with arthroscopic evaluation with probable partial medial and lateral meniscectomies. We will likely perform that as an outpatient procedure. Risks and benefits were discussed at length in layman's terms. MMODL / IJN: [id number] /
[~2022-01-23 11:32] MED LIST: HYDROmorphone 0.5 MG/0.5 ML SYRINGE IVP PRN; LACTATED RINGERS 1,000 ML IV SCH; LIDOCAINE 1% (10MG/ML) FOR IV START INTRADERMA PRN; ONDANSETRON 4 MG/2 ML VIAL IVP ONE; SCOPOLAMINE 1 MG/72 HR PATCH TRANSDERM ONE
[2022-01-23] MEDS ORDERED: DEXAMETHASONE SOD PHOSPHATE 4 MG/ML 1 ML VIAL IVP ONE (12:13)
[2022-01-23 12:14] LABS: Glucose,Whole Blood 134 mg/dL (75-99)
[2022-01-23] MEDS ORDERED: LIDOCAINE 2% INJ 20 MG/ML (2 ML VIAL) ONE (12:44)
[2022-01-23] MEDS ORDERED: fentaNYL (PF) 50 MCG/ML 2 ML AMP ONE (12:44)
[2022-01-23] MEDS ORDERED: HYDROmorphone (PF) 1 MG/ML ONE (12:44)
[2022-01-23] MEDS ORDERED: KETOROLAC 15 MG/ML 1 ML VIAL ONE (12:44)
[2022-01-23] MEDS ORDERED: PROPOFOL 10 MG/ML 20 ML VIAL IV ONE (12:44)
[2022-01-23] MEDS ORDERED: SUCCINYLCHOLINE CHLORIDE VIAL 200 MG/10 ML VIAL IV ONE (12:44)
[2022-01-23] MEDS ORDERED: ROCURONIUM 10 MG/ML (5 ML VIAL) IV ONE (12:44)
[2022-01-23] MEDS ORDERED: MIDAZOLAM 2 MG/2 ML VIAL ONE (12:44)
[2022-01-23] MEDS ORDERED: EPINEPHrine (PF) 1 ML in SODIUM CHLORIDE 0.9% IRRIGATIO 3,000 ML IRRIGATION ONE ×4 (12:49)
[2022-01-23] MEDS ORDERED: LACTATED RINGERS 1,000 ML IV ONE (13:21)
--- NOTE | 2022-01-23 13:28 | P.OP ---
Date of Procedure: 01/23/22 Preoperative Diagnosis: Left knee internal derangement Postoperative Diagnosis: Left knee posterior lateral meniscal tear/grade 3 chondral injury posterior central medial femoral condyle Procedure(s) Performed: Left knee arthroscopic partial lateral meniscectomy/medial femoral chondrectomy/microfracture medial femoral condyle Anesthesia: SENA Surgeon: Reynold Reynoso Estimated Blood Loss (ml): 10 Pathology: none sent Condition: stable Disposition: PACU Indications for Procedure: The patient's a 41-year-old female who presents with progressive left knee pain and mechanical symptoms despite conservative measures. A discussion of the risks and benefits of operative intervention versus continued conservative measures was made with patient. She opts to proceed with surgery. Operative risks to include infection, neurovascular injury, development of blood clots, possible incomplete resolution of symptoms, possible worsening symptoms and need for subsequent procedures was discussed. Informed consent was obtained. Operative Findings: As below Description of Procedure: The patient was brought to the operating room, and after induction of general anesthesia examined the left knee. Collaterals were stable, Mirna was negative, and posterior drawer was negative. The left lower extremity was prepped and draped in a normal fashion. A superior lateral portal was made through a 3 mm skin incision superior and lateral to the patella. This was used for outflow. A lateral portal was made through a 5 mm vertical skin incision lateral to the patella tendon above the joint line. Diagnostic arthroscopy was performed. On inspection of the medial compartment, the medial meniscus appeared be stable and intact. A grade 3 chondral injury involving the posterior aspect of the central medial femoral condyle was noted. There was a loose chondral flap that was debrided back to a stable base with a motorized shaver. Microfracture was performed with a power pik breaching the subchondral surface down to the bone marrow elements. On inspection of the notch, the anterior cruciate ligament appeared to be intact. On inspection of the lateral compartment, a radial tear involving the middle to posterior one third was noted in the white-white junction. This was debrided back to stable base with straight baskets and a motorized shaver. The remaining lateral meniscus was stable and intact. On inspection of the patellofemoral articulation, there is chondral fibrillation however no loose chondral fragments. The gutters were clear debris. The knee was then thoroughly irrigated. The portals were closed with Steri-Strips. A sterile dressing was applied in addition to a compression stocking. The patient was awoken from general anesthesia and transferred to recovery room in good condition. Blood loss was estimated at 10 mL. No complications were incurred.
[2022-01-23 13:46] VITALS: TEMP 97.2
[2022-01-23 13:52] VITALS: RESP 16
[2022-01-23] MEDS ORDERED: HYDROcodone/APAP 5-325MG 1 EACH TAB PO ONE (14:40)
[2022-01-23] MEDS ORDERED: HYDROcodone/APAP 5-325MG 1 EACH TAB ONE (14:42)
[2022-01-23 15:03] VITALS: BP 127/78; PULSE 80
== END 2022-01-23 15:47 | disposition home or self-care (01) ==
LOC: OR 11:32
PROVIDERS: ATTEND Orthopaedic Surgery
DX: S83.282A Other tear of lateral meniscus, current injury, left knee, initial encounter (principal); E11.9 Type 2 diabetes mellitus without complications; F31.9 Bipolar disorder, unspecified; F41.9 Anxiety disorder, unspecified; Z79.1 Long term (current) use of non-steroidal anti-inflammatories (NSAID); Z83.3 Family history of diabetes mellitus; I10 Essential (primary) hypertension; Z87.891 Personal history of nicotine dependence; G43.909 Migraine, unspecified, not intractable, without status migrainosus; Z79.899 Other long term (current) drug therapy
CPT/HCPCS: 29879; 29881; 81025; J2250; J0330; J1100; J0690; J2405; J0171; J3010; J1170 ×2; J1885; J2704; J2001

== ENCOUNTER 2023-06-02 16:22 | Emergency (ER) | payer OTHER ==
[2023-06-02] MEDS ORDERED: cefTRIAXone 250 MG VIAL IM STA (16:48)
[2023-06-02] MEDS ORDERED: DOXYCYCLINE 100 MG CAP PO STA (16:48)
[2023-06-02] MEDS ORDERED: metroNIDAZOLE 500 MG TAB PO STA (16:48)
--- NOTE | 2023-06-02 16:53 | ED ---
General Adult HPI - General Source: patient, police, RN notes reviewed, old records reviewed Mode of arrival: ambulatory Limitations: no limitations <Zelalem Vides - Last Filed: 06/02/23 19:08> <Werner Adams - Last Filed: 06/03/23 14:01> - General Chief complaint: Psychiatric Symptoms Stated complaint: petition Time Seen by Provider: 06/02/23 16:26 - History of Present Illness Initial comments: Patient is a 43-year-old female presents emergency Department complaining of suicidal ideation. Petitioned by police for sure suicide letter. Patient states she did not intend act on it but she did with the latter. Does have a history of suicide attempt. Has a history of depression. Has been off medicati ons. Denies any homicidal ideations, attempts, plans. Denies any current suicidal ideations, attempts, plans. Denies any hallucinations. Denies chest pain or shortness of breath. Does endorse vaginal discharge and is concerned she may been exposed to an STD.Patient endorses a mildly increased amount of white vaginal discharge. Denies any abdominal pain. He is asking to be tested for STDs. No other acute complaints at this time. Denies any drug use. Presents for psychiatric evaluation. (Zelalem Vides) - Related Data Home Medications Medication Instructions Recorded Confirmed Ergocalciferol (Vitamin D2) 1,250 mcg PO WEEKLY 06/02/23 06/02/23 [Drisdol (50,000 Iu)] Insulin Glargine [Lantus Vial] 25 unit SQ HS 06/02/23 06/02/23 Insulin Lispro [humaLOG Kwikpen] 10 unit SQ AC-TID 06/02/23 06/02/23 Metformin Er 750 mg PO BID 06/02/23 06/02/23 Pioglitazone [Actos] 15 mg PO DAILY 06/02/23 06/02/23 Sertraline [Zoloft] 50 mg PO DAILY 06/02/23 06/02/23 Previous Rx's Medication Instructions Recorded Doxycycline Hyclate 100 mg PO BID 7 Days #14 capsule 06/02/23 Allergies Allergy/AdvReac Type Severity Reaction Status Date / Time No Known Allergies Allergy Verified 06/02/23 19:44 Review of Systems ROS Other: All systems not noted in ROS Statement are negative. <Zelalem Vides - Last Filed: 06/02/23 19:08> ROS Other: All systems not noted in ROS Statement are negative. <Werner Adams - Last Filed: 06/03/23 14:01> ROS Statement: Those systems with pertinent positive or pertinent negative responses have been documented in the HPI. Past Medical History Past Medical History: Diabetes Mellitus Additional Past Medical History / Comment(s): migraines History of Any Multi-Drug Resistant Organisms: None Reported Additional Past Surgical History / Comment(s): d&c, covid 2020 Past Anesthesia/Blood Transfusion Reactions: No Reported Reaction Past Psychological History: Depression Smoking Status: Current every day smoker Past Alcohol Use History: None Reported Past Drug Use History: Marijuana - Past Family History Mother History Unknown: Yes <Zelalem Vides - Last Filed: 06/02/23 19:08> General Exam Limitations: no limitations <Zelalem Vides - Last Filed: 06/02/23 19:08> - General Exam Comments Initial Comments: Review of Systems: CONST: Denies fever EYES: Denies blurry vision ENT: Denies nasal congestion C/V: Denies Chest pain RESP: Denies shortness of breath GI: Denies abdominal pain : Endorses vaginal discharge SKIN: Denies rash. MSK: Denies joint pain. NEURO: Denies headache PSYCH: Denies suicidal and homicidal ideations/plans/attempts. Denies visual or auditory hallucinations. (Zelalem Vides) Course Vital Signs 06/02/23 06/02/23 06/03/23 16:23 19:48 06:00 Temperature 98.3 F 98.3 F 97.7 F Pulse Rate 96 75 60 Respiratory 20 19 18 Rate Blood Pressure 119/76 116/76 125/77 O2 Sat by Pulse 96 96 97 Oximetry Medical Decision Making - Lab Data Result diagrams: 06/02/23 17:24 06/02/23 17:24 <Zelalem Vides - Last Filed: 06/02/23 19:08> - Lab Data Result diagrams: 06/02/23 17:24 06/02/23 17:24 <Werner Adams - Last Filed: 06/03/23 14:01> - Medical Decision Making Was pt. sent in by a medical professional or institution (, PA, INDUSTRIAL WASTE INSPECTOR, urgent care, hospital, or [facility]...) When possible be specific @ -Brought in by police for condition. Did you speak to anyone other than the patient for history (EMS, parent, family, police, friend...)? What history was obtained from this source @ -No Did you review nursing and triage notes (agree or disagree)? Why? @ -I reviewed and agree with nursing and triage notes Were old charts reviewed (outside hosp., previous admission, EMS record, old EKG, old radiological studies, urgent care reports/EKG's, [facility] records)? Report findings @ -Old charts were reviewed. Differential Diagnosis (chest pain, altered mental status, abdominal pain women, abdominal pain men, vaginal bleeding, weakness, fever, dyspnea, syncope, headache, dizziness, GI bleed, back pain, seizure, CVA, palpatations, mental health, musculoskeletal)? @ -Differential Mental Health Depression, anxiety, bipolar, psychosis, schizophrenia, borderline personality, situational depression, adjustment disorder, behavioral disorder, brain tumor, malingering, substance abuse, encephalopathy, medication reaction, dementia, hypothyroidism, degenerative neurologic disorder, lupus.... This is not meant to be all-inclusive list also includes STD exposure, UTI. EKG interpreted by me (3pts min.). @ -None done X-rays interpreted by me (1pt min.). @ -None done CT interpreted by me (1pt min.). @ -None done U/S interpreted by me (1pt. min.). @ -None done What testing was considered but not performed or refused? (CT, X-rays, U/S, labs)? Why? @ -None What meds were considered but not given or refused? Why? @ -None Did you discuss the management of the patient with other professionals (professionals i.e. , PA, INDUSTRIAL WASTE INSPECTOR, lab, RT, psych nurse, director social service, milanese knitting machine operator, teacher, [place] police officer, case advocate)? Give summary @ -EPS notified of the consult. Was smoking cessation discussed for >3mins.? @ -No Was critical care preformed (if so, how long)? @ -No Were there social determinants of health that impacted care today? How? (Homelessness, low income, unemployed, alcoholism, drug addiction, transportation, low edu. Level, literacy, decrease access to med. care, intermediate, rehab)? @ -No Was there de-escalation of care discussed even if they declined (Discuss DNR or withdrawal of care, Hospice)? DNR status @ -No What co-morbidities impacted this encounter? (DM, HTN, Smoking, COPD, CAD, Ca ncer, CVA, ARF, Chemo, Hep., AIDS, mental health diagnosis, sleep apnea, morbid obesity)? @ -None Was patient admitted / discharged? Hospital course, mention meds given and route, prescriptions, significant lab abnormalities, going to OR and other pertinent info. @ -Based on the patient's presentation and physical exam, I'm concerned for ne ed for psychiatric evaluation for the patient. Suicide precautions ordered. Sitter ordered. Patient placing green scrubs. She has a history of poorly controlled diabetes that she has not been taking her medications. Accu-Chek is 281. Therefore we will obtain basic labs. She is also requesting only tested for STDs due to exposure and slightly increased discharge. No concern for pelvic inflammatory disease at this time. She was in agreement with this plan. Patient's workup shows normal blood work. UDS positive for marijuana. BAT is 0. Patient is not . Urinalysis is concerning for infection in the setting of STD exposure. I updated the patient. She was prophylactically given STD exposure medications, I am Rocephin, doxycycline, Flagyl. I will start her on twice a day doxycycline administration and provide her with a prescription upon discharge. She was in agreement with this plan. Patient is medically cleared for evaluation for EPS at this time. Disposition is chronic psychiatric evaluation. EPS is notified. Undiagnosed new problem with uncertain prognosis? @ -No Drug Therapy requiring intensive monitoring for toxicity (Heparin, Nitro, Insulin, Cardizem)? @ -No Were any procedures done? @ -No Diagnosis/symptom? @ -STD exposure, encounter for psychiatric evaluation Acute, or Chronic, or Acute on Chronic? @ -Acute Uncomplicated (without systemic symptoms) or Complicated (systemic symptoms)? @ -Uncomplicated Side effects of treatment? @ -No Exacerbation, Progression, or Severe Exacerbation? @ -No Poses a threat to life or bodily function? How? (Chest pain, [place], [place], pneumonia, PE, COPD, DKA, ARF, appy, cholecystitis, CVA, Diverticulitis, Homicidal, Suicidal, threat to staff... and all critical care pts) @ -No (Zelalem Vides) - Lab Data Lab Results 06/02/23 06/02/23 06/02/23 Range/Units 17:09 17:10 17:10 WBC (3.8-10.6) k/uL RBC (3.80-5.40) m/uL Hgb (11.4-16.0) gm/dL Hct (34.0-46.0) % MCV (80.0-100.0) fL MCH (25.0-35.0) pg MCHC (31.0-37.0) g/dL RDW (11.5-15.5) % Plt Count (150-450) k/uL MPV Neutrophils % % Lymphocytes % % Monocytes % % Eosinophils % % Basophils % % Neutrophils # (1.3-7.7) k/uL Lymphocytes # (1.0-4.8) k/uL Monocytes # (0-1.0) k/uL Eosinophils # (0-0.7) k/uL Basophils # (0-0.2) k/uL Sodium (137-145) mmol/L Potassium (3.5-5.1) mmol/L Chloride (98-107) mmol/L Carbon Dioxide (22-30) mmol/L Anion Gap mmol/L BUN (7-17) mg/dL Creatinine (0.52-1.04) mg/dL Est GFR (CKD-EPI)AfAm (>60 ml/min/1.73 sqM) Est GFR (CKD-EPI)NonAf (>60 ml/min/1.73 sqM) Glucose (74-99) mg/dL POC Glucose (mg/dL) 281 H (70-110) mg/dL POC Glu Developmental Writing Instructor ID Heron De Luna Calcium (8.4-10.2) mg/dL Total Bilirubin (0.2-1.3) mg/dL AST (14-36) U/L ALT (4-34) U/L Alkaline Phosphatase (38-126) U/L Total Protein (6.3-8.2) g/dL Albumin (3.5-5.0) g/dL Urine Color Light Yellow Urine Appearance Cloudy H (Clear) Urine pH 5.5 (5.0-8.0) Ur Specific Bellamy 1.027 (1.001-1.035) Urine Protein Trace H (Negative) Urine Glucose (UA) 4+ H (Negative) Urine Ketones Negative (Negative) Urine Blood Small H (Negative) Urine Nitrite Negative (Negative) Urine Bilirubin Negative (Negative) Urine Urobilinogen <2.0 (<2.0) mg/dL Ur Leukocyte Esterase Large H (Negative) Urine RBC 7 H (0-5) /hpf Urine WBC 119 H (0-5) /hpf Ur Squamous Epith Cells 6 H (0-4) /hpf Calcium Oxalate Crystal Moderate H (None) /hpf Urine Bacteria Rare H (None) /hpf Urine Mucus Occasional H (None) /hpf Urine HCG, Qual (Not Detectd) Urine Opiates Screen Not Detected (NotDetected) Ur Oxycodone Screen Not Detected (NotDetected) Urine Methadone Screen Not Detected (NotDetected) Ur Propoxyphene Screen Not Detected (NotDetected) Ur Barbiturates Screen Not Detected (NotDetected) U Tricyclic Antidepress Not Detected (NotDetected) Ur Phencyclidine Scrn Not Detected (NotDetected) Ur Amphetamines Screen Not Detected (NotDetected) U Methamphetamines Scrn Not Detected (NotDetected) U Benzodiazepines Scrn Not Detected (NotDetected) Urine Cocaine Screen Not Detected (NotDetected) U Marijuana (THC) Screen Detected H (NotDetected) Coronavirus (PCR) (Not Detectd) 06/02/23 06/02/23 06/02/23 Range/Units 17:10 17:24 17:24 WBC 11.3 H (3.8-10.6) k/uL RBC 5.15 (3.80-5.40) m/uL Hgb 14.3 (11.4-16.0) gm/dL Hct 43.8 (34.0-46.0) % MCV 85.1 (80.0-100.0) fL MCH 27.7 (25.0-35.0) pg MCHC 32.6 (31.0-37.0) g/dL RDW 13.8 (11.5-15.5) % Plt Count 336 (150-450) k/uL MPV 7.9 Neutrophils % 68 % Lymphocytes % 21 % Monocytes % 5 % Eosinophils % 4 % Basophils % 0 % Neutrophils # 7.7 (1.3-7.7) k/uL Lymphocytes # 2.4 (1.0-4.8) k/uL Monocytes # 0.6 (0-1.0) k/uL Eosinophils # 0.4 (0-0.7) k/uL Basophils # 0.0 (0-0.2) k/uL Sodium 138 (137-145) mmol/L Potassium 4.1 (3.5-5.1) mmol/L Chloride 102 (98-107) mmol/L Carbon Dioxide 27 (22-30) mmol/L Anion Gap 9 mmol/L BUN 15 (7-17) mg/dL Creatinine 0.68 (0.52-1.04) mg/dL Est GFR (CKD-EPI)AfAm >90 (>60 ml/min/1.73 sqM) Est GFR (CKD-EPI)NonAf >90 (>60 ml/min/1.73 sqM) Glucose 262 H (74-99) mg/dL POC Glucose (mg/dL) (70-110) mg/dL POC Glu Developmental Writing Instructor ID Calcium 9.7 (8.4-10.2) mg/dL Total Bilirubin 0.4 (0.2-1.3) mg/dL AST 34 (14-36) U/L ALT 33 (4-34) U/L Alkaline Phosphatase 122 (38-126) U/L Total Protein 8.1 (6.3-8.2) g/dL Albumin 4.1 (3.5-5.0) g/dL Urine Color Urine Appearance (Clear) Urine pH (5.0-8.0) Ur Specific Bellamy (1.001-1.035) Urine Protein (Negative) Urine Glucose (UA) (Negative) Urine Ketones (Negative) Urine Blood (Negative) Urine Nitrite (Negative) Urine Bilirubin (Negative) Urine Urobilinogen (<2.0) mg/dL Ur Leukocyte Esterase (Negative) Urine RBC (0-5) /hpf Urine WBC (0-5) /hpf Ur Squamous Epith Cells (0-4) /hpf Calcium Oxalate Crystal (None) /hpf Urine Bacteria (None) /hpf Urine Mucus (None) /hpf Urine HCG, Qual Not Detected (Not Detectd) Urine Opiates Screen (NotDetected) Ur Oxycodone Screen (NotDetected) Urine Methadone Screen (NotDetected) Ur Propoxyphene Screen (NotDetected) Ur Barbiturates Screen (NotDetected) U Tricyclic Antidepress (NotDetected) Ur Phencyclidine Scrn (NotDetected) Ur Amphetamines Screen (NotDetected) U Methamphetamines Scrn (NotDetected) U Benzodiazepines Scrn (NotDetected) Urine Cocaine Screen (NotDetected) U Marijuana (THC) Screen (NotDetected) Coronavirus (PCR) (Not Detectd) 06/03/23 Range/Units 06:09 WBC (3.8-10.6) k/uL RBC (3.80-5.40) m/uL Hgb (11.4-16.0) gm/dL Hct (34.0-46.0) % MCV (80.0-100.0) fL MCH (25.0-35.0) pg MCHC (31.0-37.0) g/dL RDW (11.5-15.5) % Plt Count (150-450) k/uL MPV Neutrophils % % Lymphocytes % % Monocytes % % Eosinophils % % Basophils % % Neutrophils # (1.3-7.7) k/uL Lymphocytes # (1.0-4.8) k/uL Monocytes # (0-1.0) k/uL Eosinophils # (0-0.7) k/uL Basophils # (0-0.2) k/uL Sodium (137-145) mmol/L Potassium (3.5-5.1) mmol/L Chloride (98-107) mmol/L Carbon Dioxide (22-30) mmol/L Anion Gap mmol/L BUN (7-17) mg/dL Creatinine (0.52-1.04) mg/dL Est GFR (CKD-EPI)AfAm (>60 ml/min/1.73 sqM) Est GFR (CKD-EPI)NonAf (>60 ml/min/1.73 sqM) Glucose (74-99) mg/dL POC Glucose (mg/dL) (70-110) mg/dL POC Glu Developmental Writing Instructor ID Calcium (8.4-10.2) mg/dL Total Bilirubin (0.2-1.3) mg/dL AST (14-36) U/L ALT (4-34) U/L Alkaline Phosphatase (38-126) U/L Total Protein (6.3-8.2) g/dL Albumin (3.5-5.0) g/dL Urine Color Urine Appearance (Clear) Urine pH (5.0-8.0) Ur Specific Bellamy (1.001-1.035) Urine Protein (Negative) Urine Glucose (UA) (Negative) Urine Ketones (Negative) Urine Blood (Negative) Urine Nitrite (Negative) Urine Bilirubin (Negative) Urine Urobilinogen (<2.0) mg/dL Ur Leukocyte Esterase (Negative) Urine RBC (0-5) /hpf Urine WBC (0-5) /hpf Ur Squamous Epith Cells (0-4) /hpf Calcium Oxalate Crystal (None) /hpf Urine Bacteria (None) /hpf Urine Mucus (None) /hpf Urine HCG, Qual (Not Detectd) Urine Opiates Screen (NotDetected) Ur Oxycodone Screen (NotDetected) Urine Methadone Screen (NotDetected) Ur Propoxyphene Screen (NotDetected) Ur Barbiturates Screen (NotDetected) U Tricyclic Antidepress (NotDetected) Ur Phencyclidine Scrn (NotDetected) Ur Amphetamines Screen (NotDetected) U Methamphetamines Scrn (NotDetected) U Benzodiazepines Scrn (NotDetected) Urine Cocaine Screen (NotDetected) U Marijuana (THC) Screen (NotDetected) Coronavirus (PCR) Not Detected (Not Detectd) Disposition <Zelalem Vides - Last Filed: 06/02/23 19:08> Is patient prescribed a controlled substance at d/c from ED?: No <Werner Adams - Last Filed: 06/03/23 14:01> Clinical Impression: Encounter for psychiatric assessment, STD exposure Disposition: HOME SELF-CARE Condition: Fair Instructions (If sedation given, give patient instructions): Help Prevent Suicide (ED) Prescriptions: Doxycycline Hyclate 100 mg PO BID 7 Days #14 capsule Referrals: Caitlin Rdz MD [Primary Care Provider] - 1-2 days
[2023-06-02 17:10] LABS: Glucose,Whole Blood 281 mg/dL (70-110)
[2023-06-02 17:26] LABS: Appearance,Urine Cloudy (Clear); Bacteria,Urine Rare /hpf; Bilirubin,Urine Negative (Negative); Blood,Urine Small (Negative); Calcium Oxalate Crystals,Urine Moderate /hpf; Color,Urine Light Yellow; Glucose,Urine (UA) 4+ (Negative); Ketones,Urine Negative (Negative); Leukocyte Esterase,Urine Large (Negative); Mucus,Urine Occasional /hpf; Nitrite,Urine Negative (Negative); PH, Urine 5.5 (5.0-8.0); Protein,Urine Trace (Negative); RBC,Urine 7 /hpf (0-5); Specific Gravity,Urine 1.027 (1.001-1.035); Squamous Epithelial Cell,Urine 6 /hpf (0-4); Urobilinogen,Urine <2.0 mg/dL (<2.0); WBC,Urine 119 /hpf (0-5)
[2023-06-02 17:47] LABS: Amphetamine Screen,Urine Not Detected (NotDetected); Barbiturate Screen,Urine Not Detected (NotDetected); Benzodiazepines Screen,Urine Not Detected (NotDetected); Cocaine Screen,Urine Not Detected (NotDetected); Methadone Screen, Urine Not Detected (NotDetected); Opiate Screen,Urine Not Detected (NotDetected); Oxycodone Screen, Urine Not Detected (NotDetected); Phencyclidine Screen,Urine Not Detected (NotDetected); Tricyclic Antidepressant,Urine Not Detected (NotDetected); Urn Cannabinoid Scrn Detected (NotDetected)
[2023-06-02 17:48] LABS: Basophils % (A) 0 %; Eosinophils # (A) 0.4 k/uL (0-0.7); Eosinophils % (A) 4 %; HCT 43.8 % (34.0-46.0); HGB 14.3 gm/dL (11.4-16.0); Lymphocytes # (A) 2.4 k/uL (1.0-4.8); Lymphocytes % (A) 21 %; MCH 27.7 pg (25.0-35.0); MCHC 32.6 g/dL (31.0-37.0); MCV 85.1 fL (80.0-100.0); Mean Platelet Volume 7.9; Monocytes # (A) 0.6 k/uL (0-1.0); Monocytes % (A) 5 %; Neutrophils # (A) 7.7 k/uL (1.3-7.7); Neutrophils % (A) 68 %; Platelet Count 336 k/uL (150-450); RBC 5.15 m/uL (3.80-5.40); RDW 13.8 % (11.5-15.5); WBC 11.3 k/uL (3.8-10.6)
[2023-06-02 17:56] LABS: ALT 33 U/L (4-34); AST 34 U/L (14-36); African American GFR (CKD) >90 (>60 ml/min/1.73 sqM); Albumin 4.1 g/dL (3.5-5.0); Alkaline Phosphatase 122 U/L (38-126); Anion Gap 9 mmol/L; Blood Urea Nitrogen 15 mg/dL (7-17); Calcium 9.7 mg/dL (8.4-10.2); Carbon Dioxide 27 mmol/L (22-30); Chloride 102 mmol/L (98-107); Glucose 262 mg/dL (74-99); Non-African American GFR(CKD) >90 (>60 ml/min/1.73 sqM); Potassium 4.1 mmol/L (3.5-5.1); Sodium 138 mmol/L (137-145); Total Bilirubin 0.4 mg/dL (0.2-1.3); Total Protein 8.1 g/dL (6.3-8.2)
[2023-06-03] MEDS ORDERED: ACETAMINOPHEN TAB 325 MG TAB PO STA (00:12)
[2023-06-03] MEDS ORDERED: DOXYCYCLINE 100 MG CAP PO SCH (09:00)
[2023-06-03 15:13] VITALS: BP 129/88; PULSE 81; RESP 18; TEMP 98
[2023-06-04 14:30] LABS: C. trachomatis,PCR Positive (Negative)
[2023-06-04 14:31] LABS: N. gonorrhoeae,PCR Positive (Negative)
== END 2023-06-03 15:15 | disposition home or self-care (01) ==
LOC: EC 16:22
DX: Z00.8 Encounter for other general examination (principal); Z20.2 Contact with and (suspected) exposure to infections with a predominantly sexual mode of transmission; B96.20 Unspecified Escherichia coli [E. coli] as the cause of diseases classified elsewhere; E11.9 Type 2 diabetes mellitus without complications; F32.A Depression, unspecified; F17.200 Nicotine dependence, unspecified, uncomplicated; F12.90 Cannabis use, unspecified, uncomplicated; Z86.16 Personal history of COVID-19; Z79.4 Long term (current) use of insulin; Z79.84 Long term (current) use of oral hypoglycemic drugs; Z79.899 Other long term (current) drug therapy; Z20.822 Contact with and (suspected) exposure to COVID-19
CPT/HCPCS: 82075; 36415; 80053; 85025; 81001; 81025; 87491; 87591; 80306; 87086; 87077; 87186; 87635; 99285; 96372; J0696

== ENCOUNTER 2025-01-08 19:01 | Emergency (ER) | payer OTHER ==
[2025-01-08 20:54] LABS: Appearance,Urine Turbid (Clear); Bilirubin,Urine Negative (Negative); Blood,Urine Moderate (Negative); Color,Urine Yellow; Glucose,Urine (UA) 2+ (Negative); Ketones,Urine Negative (Negative); Leukocyte Esterase,Urine Trace (Negative); Mucus,Urine Few /hpf; Nitrite,Urine Negative (Negative); Protein,Urine 1+ (Negative); RBC,Urine 35 /hpf (0-5); Specific Gravity,Urine 1.028 (1.001-1.035); Squamous Epithelial Cell,Urine 62 /hpf (0-4); Urobilinogen,Urine <2.0 mg/dL (<2.0); WBC,Urine 13 /hpf (0-5)
[2025-01-08 21:37] LABS: Basophils # (A) 0.02 10*3/uL (0.00-0.10); Basophils % (A) 0.2 %; HCT 47.4 % (37.2-46.3); HGB 16.5 g/dL (12.0-15.0); Lymphocytes # (A) 2.97 10*3/uL (0.90-5.00); Lymphocytes % (A) 29.6 %; MCH 29.8 pg (27.0-32.0); MCHC 34.8 g/dL (32.0-37.0); MCV 85.6 fL (80.0-97.0); Mean Platelet Volume 10.4 fL (9.5-12.2); Monocytes # (A) 0.69 10*3/uL (0.20-1.00); Monocytes % (A) 6.9 %; Neutrophils % (A) 60.9 %; Platelet Count 347 10*3/uL (140-440); RBC 5.54 10*6/uL (4.10-5.20); RDW 12.6 % (11.5-14.5); WBC 10.02 10*3/uL (4.50-10.00)
[2025-01-08 21:50] LABS: ALT 35 U/L (4-34); AST 41 U/L (14-36); African American GFR (CKD) >90 (>60 ml/min/1.73 sqM); Albumin 4.3 g/dL (3.5-5.0); Alkaline Phosphatase 93 U/L (38-126); Amylase 51 U/L (30-110); Anion Gap 9 mmol/L; Blood Urea Nitrogen 12 mg/dL (7-17); Calcium 10.2 mg/dL (8.4-10.2); Carbon Dioxide 25 mmol/L (22-30); Chloride 100 mmol/L (98-107); Glucose 277 mg/dL (74-99); Lipase 132 U/L (23-300); Non-African American GFR(CKD) >90 (>60 ml/min/1.73 sqM); Sodium 134 mmol/L (137-145); Total Protein 8.3 g/dL (6.3-8.2)
[2025-01-08 22:34] LABS: Potassium 4.9 mmol/L (3.5-5.1)
--- NOTE | 2025-01-09 00:15 | CT ---
EXAM: CT Abdomen and Pelvis With Intravenous Contrast CLINICAL HISTORY: ITS.REASON CT Reason: abd pain TECHNIQUE: Axial computed tomography images of the abdomen and pelvis with intravenous contrast. CTDI is 29.17 mGy and DLP is 1411 mGy-cm. This CT exam was performed using one or more of the following dose reduction techniques: automated exposure control, adjustment of the mA and/or kV according to patient size, and/or use of iterative reconstruction technique. COMPARISON: 10/25/2018. FINDINGS: Lung bases: Unremarkable. No mass. No consolidation. Pleural space: Unremarkable. No pneumothorax. No pleural effusions. Heart: Heart is normal in size. Mediastinum: Possible mild distal esophagitis. ABDOMEN: Liver: Fatty liver. Gallbladder and bile ducts: No gallstones. Pancreas: See below. Spleen: Spleen enhances uniformly. Adrenals: The adrenal glands, the head, body, tail of the pancreas and the gallbladder are unremarkable. Kidneys and ureters: 2.5 cm simple left renal cyst. No hydronephrosis. Stomach and bowel: Moderate quantity of ingested material in the stomach. Diverticulosis without diverticulitis. No bowel obstruction. PELVIS: Appendix: The appendix is seen on coronal image 61 and is unremarkable. Bladder: Unremarkable. No mass. Reproductive: Unremarkable as visualized. ABDOMEN and PELVIS: Intraperitoneal space: Unremarkable. No free air. No significant fluid collection. Bones/joints: No acute fracture. No dislocation. No spondylolysis. Soft tissues: Ischiorectal fat is clean. Vasculature: Portal vein is patent. Flow is noted within the celiac, SMA, the renal arteries, and ILAN. No abdominal aortic aneurysm. Lymph nodes: Unremarkable. No retroperitoneal lymphadenopathy. Other findings: Persistent lobation. IMPRESSION: 1. Fatty liver. 2. The appendix is unremarkable. 3. No bowel obstruction. 4. Diverticulosis without diverticulitis. 5. Probable distal esophagitis. 6. No gallstones. 7. No renal calculus or hydronephrosis.
[2025-01-09] MEDS: KETOROLAC 15 MG/ML 1 ML VIAL IVP STA (00:39)
[2025-01-09] MEDS: FLUCONAZOLE 100 MG TAB PO ONE (00:39)
--- NOTE | 2025-01-09 01:04 | ED ---
General Adult HPI - General Chief complaint: Abdominal Pain Stated complaint: ABD Pain Time Seen by Provider: 01/08/25 22:36 Source: patient, RN notes reviewed Mode of arrival: ambulatory Limitations: no limitations - History of Present Illness Initial comments: 44-year-old female presents to the emergency department for evaluation of suprapubic abdominal pain. Patient reports that the symptoms have been going on for over 2 weeks. She notes that she has a lot of redness and swelling in the lower abdomen and into the labia. She states that she has a lot of discomfort when she urinates. She denies any hematuria. She does admit to some abnormal vaginal discharge. Denies any known fever, chills. Admits to nausea without vomiting. Denies any changes in her bowel movements. - Related Data Home Medications Medication Instructions Recorded Confirmed Ergocalciferol (Vitamin D2) 1,250 mcg PO WEEKLY 06/02/23 06/02/23 [Drisdol (50,000 Iu)] Insulin Glargine (Lantus) [Lantus 25 unit SQ HS 06/02/23 06/02/23 Vial] Insulin Lispro [humaLOG Kwikpen] 10 unit SQ AC-TID 06/02/23 06/02/23 Metformin Er 750 mg PO BID 06/02/23 06/02/23 Pioglitazone [Actos] 15 mg PO DAILY 06/02/23 06/02/23 Sertraline [Zoloft] 50 mg PO DAILY 06/02/23 06/02/23 Previous Rx's Medication Instructions Recorded Doxycycline Hyclate 100 mg PO BID 7 Days #14 capsule 06/02/23 Fluconazole [Diflucan] 150 mg PO ONCE #2 tab 01/09/25 Allergies Allergy/AdvReac Type Severity Reaction Status Date / Time No Known Allergies Allergy Verified 01/08/25 19:12 Review of Systems ROS Statement: Those systems with pertinent positive or pertinent negative responses have been documented in the HPI. ROS Other: All systems not noted in ROS Statement are negative. Past Medical History Past Medical History: Diabetes Mellitus Additional Past Medical History / Comment(s): migraines History of Any Multi-Drug Resistant Organisms: None Reported Past Surgical History: Orthopedic Surgery Additional Past Surgical History / Comment(s): d&c, covid 2020 Past Anesthesia/Blood Transfusion Reactions: No Reported Reaction Past Psychological History: Anxiety, Bipolar, Depression Smoking Status: Current every day smoker Past Alcohol Use History: None Reported Past Drug Use History: Marijuana - Past Family History Mother History Unknown: Yes General Exam Limitations: no limitations General appearance: alert, in no apparent distress Head exam: Present: atraumatic, normocephalic, normal inspection Eye exam: Present: normal appearance, PERRL, EOMI. Absent: scleral icterus, conjunctival injection, periorbital swelling ENT exam: Present: normal exam, mucous membranes moist Neck exam: Present: normal inspection. Absent: tenderness, meningismus, lymphadenopathy Respiratory exam: Present: normal lung sounds bilaterally. Absent: respiratory distress, wheezes, rales, rhonchi, stridor Cardiovascular Exam: Present: regular rate, normal rhythm, normal heart sounds. Absent: systolic murmur, diastolic murmur, rubs, gallop, clicks GI/Abdominal exam: Present: soft, tenderness (Suprapubic tenderness to palpation), normal bowel sounds, other (Overlying erythema in the pubic region). Absent: distended, guarding, rebound, rigid External exam: Present: erythema, swelling Extremities exam: Present: normal inspection, full ROM, normal capillary refill. Absent: tenderness, pedal edema, joint swelling, calf tenderness Neurological exam: Present: alert, oriented X3 Psychiatric exam: Present: normal affect, normal mood Skin exam: Present: warm, dry, intact, rash Course Vital Signs 01/08/25 01/09/25 19:13 01:10 Temperature 98.0 F 97.9 F Pulse Rate 113 H 59 L Respiratory 18 16 Rate Blood Pressure 129/83 126/83 O2 Sat by Pulse 95 99 Oximetry Medical Decision Making - Medical Decision Making Was pt. sent in by a medical professional or institution (, PA, PARTS FACILITATOR, urgent care, hospital, or custodial...) When possible be specific @ -[No] Did you speak to anyone other than the patient for history (EMS, parent, family, police, friend...)? What history was obtained from this source @ -[No] Did you review nursing and triage notes (agree or disagree)? Why? @ -[I reviewed and agree with nursing and triage notes] Were old charts reviewed (outside hosp., previous admission, EMS record, old EKG, old radiological studies, urgent care reports/EKG's, custodial records)? Report findings @ -[No old charts were reviewed] Differential Diagnosis (chest pain, altered mental status, abdominal pain women, abdominal pain men, vaginal bleeding, weakness, fever, dyspnea, syncope, headache, dizziness, GI bleed, back pain, seizure, CVA, palpatations, mental health, musculoskeletal)? @ -Differential Abdominal Pain Women: Appendicitis, Cholecystitis, diverticulosis, ischemic bowel, pancreatitis, hepatitis, UTI, gastroenteritis, AAA, incarcerated hernia, bowel obstruction, constipation, inflammatory bowel, hepatitis, peptic ulcer disease, splenic infarction, perforated viscus, vulvitis, ovarian torsion, PID, kidney stone, placenta abruption, this is not meant to be an all-inclusive list EKG interpreted by me (3pts min.). @ -None X-rays interpreted by me (1pt min.). @ -[None done] CT interpreted by me (1pt min.). @ -CT of the abdomen pelvis obtained revealing no acute intra-abdominal process, diverticulosis without diverticulitis, probable distal esophagitis. U/S interpreted by me (1pt. min.). @ -[None done] What testing was considered but not performed or refused? (CT, X-rays, U/S, labs)? Why? @ -[None] What meds were considered but not given or refused? Why? @ -[None] Did you discuss the management of the patient with other professionals (professionals i.e. , PA, PARTS FACILITATOR, lab, RT, psych nurse, director of social media marketing, senior systems administrator, teacher, driver's license reviewing officer, case worker)? Give summary @ -[No] Was smoking cessation discussed for >3mins.? @ -[No] Was critical care preformed (if so, how long)? @ -[No] Were there social determinants of health that impacted care today? How? (Britt elessness, low income, unemployed, alcoholism, drug addiction, transportation, low edu. Level, literacy, decrease access to med. care, nursing home, rehab)? @ -[No] Was there de-escalation of care discussed even if they declined (Discuss DNR or withdrawal of care, Hospice)? DNR status @ -[No] What co-morbidities impacted this encounter? (DM, HTN, Smoking, COPD, CAD, Cancer, CVA, ARF, Chemo, Hep., AIDS, mental health diagnosis, sleep apnea, morbid obesity)? @ -[None] Was patient admitted / discharged? Hospital course, mention meds given and route, prescriptions, significant lab abnormalities, going to OR and other pertinent info. @ -Discharged. Patient presented the emergency department for suprapubic abdominal pain and vulvar erythema and swelling.CBC reveals no significant leukocytosis, hemoglobin 16.5; CMP reveals mild hyponatremia at 134, hyperglycemia with a glucose of 277, she has known history of diabetes. UA reveals 1+ protein, 2+ glucose, moderate blood this will be sent for urine culture. A genital culture was also obtained and sent down to the lab. Patient will be treated for vulvovaginitis. She is understanding and agreeable with this plan. Patient stable at time of discharge. Case discussed with Dr. Peguero. Undiagnosed new problem with uncertain prognosis? @ -[No] Drug Therapy requiring intensive monitoring for toxicity (Heparin, Nitro, Ins ulin, Cardizem)? @ -[No] Were any procedures done? @ -[No] Diagnosis/symptom? @ -Vulvovaginitis Acute, or Chronic, or Acute on Chronic? @ -Acute Uncomplicated (without systemic symptoms) or Complicated (systemic symptoms)? @ -Uncomplicated Side effects of treatment? @ -[No] Exacerbation, Progression, or Severe Exacerbation? @ -[No] Poses a threat to life or bodily function? How? (Chest pain, USA, OR, pneumonia, PE, COPD, DKA, ARF, appy, cholecystitis, CVA, Diverticulitis, Homicidal, Suici oksana, threat to staff... and all critical care pts) @ -[No] - Lab Data Result diagrams: 01/08/25 21:22 01/08/25 21:22 Lab Results 01/08/25 01/08/25 01/08/25 Range/Units 19:17 21:22 21:22 WBC 10.02 H (4.50-10.00) 10*3/uL RBC 5.54 H (4.10-5.20) 10*6/uL Hgb 16.5 H (12.0-15.0) g/dL Hct 47.4 H (37.2-46.3) % MCV 85.6 (80.0-97.0) fL MCH 29.8 (27.0-32.0) pg MCHC 34.8 (32.0-37.0) g/dL Plt Count 347 (140-440) 10*3/uL MPV 10.4 (9.5-12.2) fL Immature Gran % (Auto) 0.4 % Neutrophils % 60.9 % Lymphocytes % 29.6 % Monocytes % 6.9 % Eosinophils % 2.0 % Basophils % 0.2 % Immature Gran # 0.04 (0.00-0.04) 10*3/uL Neutrophils # 6.10 (1.80-7.70) 10*3/uL Lymphocytes # 2.97 (0.90-5.00) 10*3/uL Monocytes # 0.69 (0.20-1.00) 10*3/uL Eosinophils # 0.20 (0.04-0.35) 10*3/uL Basophils # 0.02 (0.00-0.10) 10*3/uL Sodium 134 L (137-145) mmol/L Potassium 4.9 (3.5-5.1) mmol/L Chloride 100 (98-107) mmol/L Carbon Dioxide 25 (22-30) mmol/L Anion Gap 9 mmol/L BUN 12 (7-17) mg/dL Creatinine 0.50 L (0.52-1.04) mg/dL Est GFR (CKD-EPI)AfAm >90 (>60 ml/min/1.73 sqM) Est GFR (CKD-EPI)NonAf >90 (>60 ml/min/1.73 sqM) Glucose 277 H (74-99) mg/dL Calcium 10.2 (8.4-10.2) mg/dL Total Bilirubin 1.0 (0.2-1.3) mg/dL AST 41 H (14-36) U/L ALT 35 H (4-34) U/L Alkaline Phosphatase 93 (38-126) U/L Total Protein 8.3 H (6.3-8.2) g/dL Albumin 4.3 (3.5-5.0) g/dL Amylase 51 (30-110) U/L Lipase 132 (23-300) U/L Urine Color Yellow Urine Appearance Turbid H (Clear) Urine pH 5.0 (5.0-8.0) Ur Specific [place] 1.028 (1.001-1.035) Urine Protein 1+ H (Negative) Urine Glucose (UA) 2+ H (Negative) Urine Ketones Negative (Negative) Urine Blood Moderate H (Negative) Urine Nitrite Negative (Negative) Urine Bilirubin Negative (Negative) Urine Urobilinogen <2.0 (<2.0) mg/dL Ur Leukocyte Esterase Trace H (Negative) Urine RBC 35 H (0-5) /hpf Urine WBC 13 H (0-5) /hpf Ur Squamous Epith Cells 62 H (0-4) /hpf Urine Mucus Few H (None) /hpf Disposition Clinical Impression: Vulvovaginitis Disposition: HOME SELF-CARE Condition: Stable Additional Instructions: Please follow up with your doctor. Return to the emergency department for new or worsening symptoms. Prescriptions: Fluconazole [Diflucan] 150 mg PO ONCE #2 tab Is patient prescribed a controlled substance at d/c from ED?: No Referrals: Caitlin Rdz MD [Primary Care Provider] - 1-2 days
[2025-01-09 01:13] VITALS: BP 126/83; PULSE 59; RESP 16; TEMP 97.9
== END 2025-01-09 01:10 | disposition home or self-care (01) ==
LOC: EC 19:01
DX: N76.0 Acute vaginitis (principal); F17.200 Nicotine dependence, unspecified, uncomplicated
CPT/HCPCS: 36415; 80053; 82150; 83690; 85025; 81001; 87070; 87086; 74177; 99284; 96374; J1885; Q9967